=== PATIENT | male | born 1935 | race Caucasian/White ===

== ENCOUNTER → 2017-02-26 | Outpatient (REF) | payer MEDICARE | LOC: M SFHCLERA 11:35 | PROVIDERS: ATTEND Dermatology | DX: L57.0 Actinic keratosis (principal); L85.9 Epidermal thickening, unspecified; L57.8 Other skin changes due to chronic exposure to nonionizing radiation; C44.529 Squamous cell carcinoma of skin of other part of trunk ==

== ENCOUNTER → 2017-05-17 | Outpatient (CLI) | payer MEDICARE ==
[~2017-05-17] MED LIST: GASTROGRAFIN SOLUTION 30ML (Q9963) As Ordered ONE; ISOVUE-370 76% 100ML VIAL (Q9967) As Ordered ONE
--- NOTE | 2017-05-17 14:55 | REP ---
Clinical: Chronic lymphocytic leukemia for reevaluation. Technique: Axial contrast enhanced images from the thoracic inlet to the upper abdomen using 100 ml Isovue 370 intravenous contrast material with coronal and sagittal re-formations. Comparison: 10/30/2016, 02/26/2015. Findings: The bilateral lung jonas are well-aerated and demonstrate chronic interstitial changes, minimal scarring and moderate perihilar and basilar bronchiectasis. Mild cardiomegaly without pericardial effusion is appreciated atherosclerotic changes to the thoracic aorta noted without aneurysm or dissection. No significant adenopathy is appreciated. Right hilar lymph node measuring 16 mm is unchanged compared to 2015 and left hilar lymph nodes continue to measure approximately 8 mm short axis diameter. No axillary adenopathy. Surrounding musculoskeletal structures demonstrate age-related changes without focal osseous abnormality. Limited evaluation of the upper abdomen cannot exclude adenopathy in the martha hepatis and epigastric region as well as suspected splenomegaly. Hepatic hypodensities compatible with cysts are unchanged compared to 2015. Impression: 1. Lung jonas demonstrate chronic interstitial changes and scattered scarring along with bronchiectasis which remain stable. Few bilateral hilar lymph nodes are unchanged and there is no significant adenopathy. No acute mediastinal or pleuroparenchymal process noted. 2. Limited upper abdomen suggests adenopathy in the epigastric region and martha hepatis. Splenomegaly incompletely evaluated. Hepatic hypodensities compatible with cysts and unchanged. Signed by Joshua Looney MD 05/17/2017 02:47 P
--- NOTE | 2017-05-17 15:18 | REP ---
Clinical: Chronic lymphocytic leukemia for reevaluation. Comparison: 10/30/2016, 02/26/2015. Technique: Axial contrast enhanced images from the lung bases to the pubic symphysis using oral and 100 ml Isovue 370 intravenous contrast material with precontrast and delayed images of the abdomen as well as coronal and sagittal re-formations. Findings: Lung bases demonstrate chronic scarring to the lingula and bilateral bases along with mild bronchiectasis. Stable hepatic cysts are identified measuring up to 3.3 cm in the medial left lobe. No focal hepatic lesions are identified. Splenomegaly is identified without change without obvious focal splenic lesion or abnormality. Incidental note is made of a chronic splenic calcifications. The gallbladder, pancreas, bilateral adrenal glands and kidneys are essentially normal. Few scattered subcentimeter simple renal cysts are noted. The enteric system including stomach, small and large bowel is grossly unremarkable and without obstruction or acute inflammatory process. A small hiatal hernia is identified at the gastroesophageal junction. Few scattered sigmoid diverticula noted without acute diverticulitis. Pelvis includes normal bladder and mildly prominent prostate gland measuring 4.5 cm transverse diameter. No ascites. Atherosclerotic changes of the vasculature noted without aneurysm or dissection. Mesenteric and paraaortic retroperitoneal lymph nodes are appreciated. Largest nodes are identified in the left para-aortic retroperitoneal space measuring 18 mm and essentially unchanged when compared to 02/26/2015 node seen in the dot celiac access and epigastric region are also identified and appear relatively stable measuring up to approximately 14 mm short axis diameter as well as adjacent to the uncinate process measuring approximately 16 mm short axis diameter and again unchanged compared to 02/26/2015. Impression: 1. Splenomegaly (splenic index equals 1563; splenic volume equals 937 ml). With stable lymph nodes compared to 02/26/2015 and no evidence for adenopathy. No ascites or obvious mass lesion. 2. Chronic changes at the lung bases. 3. Scattered sigmoid diverticula without acute diverticulitis. 4. Moderately prominent prostate gland. 5. Stable hepatic cysts. 6. Atherosclerotic changes to the vasculature and degenerative changes to the lumbosacral spine Signed by Joshua Looney MD 05/17/2017 03:10 P
--- NOTE | 2017-05-17 15:40 | REP ---
CT SOFT-TISSUE NECK WITH CONTRAST: 05/17/2017. CLINICAL HISTORY: CLL/SLL, for follow-up. COMPARISON: CT 10/30/2016 from [facility], [place], [place]. TECHNIQUE: The patient received a bolus of 100 ml of Isovue 370, scanning through the neck with coronal and sagittal reconstructions. FINDINGS: At the skull base, the visualized portions of the anterior, middle and posterior cranial fossa were unremarkable and unchanged. Basal cisterns intact. Visualized sinuses and mastoids are clear. The skull base and occipital bone were unremarkable. Visualized facial bones and mandible also grossly intact with some absent dentition. The bilateral parotid and submandibular glands were symmetric and grossly normal. There are some enlarged nodes in the jugulodigastric chain bilaterally measuring about 10.5 mm in short axis for the largest node on each side. These are essentially unchanged from the previous CT. There are other smaller nodes in this region. There are numerous nodes in the anterior and posterior cervical chain. The largest in the carotid space on the right about 10.3 and on the left 9.5 mm in short axis, not much changed. Nodes in the supraclavicular region are present bilaterally, most of these less than a centimeter. They are also stable. Anterior and posterior strap muscles in the neck intact. The thyroid lobes are symmetric and grossly intact. The nasopharyngeal airway, oropharynx, hypopharynx, larynx and subglottic trachea were unremarkable. No prevertebral swelling. The bone windows show cervical spondylosis and normal cervical lordosis and this appearance is unchanged from the previous CT. Medial heads of the clavicles, portions of the first four paired ribs and lung apices were without acute finding, except for some minor dependent atelectatic change. Strap muscles of the neck and the visualized shoulder musculature included were unremarkable. Some atherosclerotic calcifications in the carotids bilaterally are mild. Thyroid cartilage intact. Impression: 1. Cervical chain adenopathy in the anterior and posterior cervical chain and jugulodigastric chain with nodes similar in size to those seen on the prior examination. Submandibular, jugulodigastric chain and submental nodes along with the anterior and posterior cervical chains and supraclavicular fossa with diffuse adenopathy, all grossly stable. 2. Cervical spondylosis and degenerative disc changes with normal lordosis. No compression deformity or destructive lesion. Stable bony cervical spine. Skull base, mandible and the upper chest structures included were unremarkable. Signed by Jose Antonio Jeronimo MD 05/17/2017 05:14 P
== END ==
LOC: M RAD 12:43
PROVIDERS: ATTEND Internal Medicine Medical Oncology
DX: C91.90 Lymphoid leukemia, unspecified not having achieved remission (principal); R59.0 Localized enlarged lymph nodes; M43.12 Spondylolisthesis, cervical region; J84.10 Pulmonary fibrosis, unspecified; R16.1 Splenomegaly, not elsewhere classified; K57.30 Diverticulosis of large intestine without perforation or abscess without bleeding; K76.89 Other specified diseases of liver; M51.36 Other intervertebral disc degeneration, lumbar region
CPT/HCPCS: 70491; 71260; 74178; Q9963; Q9967

== ENCOUNTER → 2017-05-22 | Outpatient (REF) | payer MEDICARE ==
[2017-05-22 20:08] LABS: PERCENT SATURATION 25.4 % (19.7-50.0)
== END ==
LOC: M LAB REF 15:15
PROVIDERS: ATTEND Internal Medicine Medical Oncology
DX: C91.10 Chronic lymphocytic leukemia of B-cell type not having achieved remission (principal)

== ENCOUNTER → 2018-01-07 | Outpatient (REF) | payer MEDICARE ==
[2018-01-07 18:30] LABS: FERRITIN 65 NG/ML (26-388); IRON (FE) 112 UG/DL (65-175); PERCENT SATURATION 38.1 % (19.7-50.0); TOTAL IRON BINDING CAPACITY 294 UG/DL (250-450)
== END ==
LOC: M LAB REF 17:35
DX: C91.10 Chronic lymphocytic leukemia of B-cell type not having achieved remission (principal)
CPT/HCPCS: 83550

== ENCOUNTER → 2018-01-24 | Outpatient (REF) | payer MEDICARE ==
[2018-01-24 11:23] LABS: INR 0.99; PROTHROMBIN TIME 13.2 SECONDS (12.4-14.5)
[2018-01-24 11:24] LABS: PARTIAL THROMBOPLASTIN TIME 35.5 SECONDS (26.8-37.9)
[2018-01-25 10:57] LABS: HEPATITIS B SURFACE ANTIGEN NEGATIVE (NEGATIVE)
[2018-01-25 11:20] LABS: HEPATITIS B CORE ANTIBODY IGM NEGATIVE (NEGATIVE)
[2018-01-25 14:14] LABS: HEPATITIS B CORE ANTIBODY IGG Negative (Negative)
== END ==
LOC: M LAB REF 10:57
DX: C91.10 Chronic lymphocytic leukemia of B-cell type not having achieved remission (principal)

== ENCOUNTER → 2018-05-21 | Outpatient (CLI) | payer MEDICARE | LOC: M RAD 06:50 | DX: R22.42 Localized swelling, mass and lump, left lower limb (principal) | CPT/HCPCS: 73630 ==

== ENCOUNTER → 2018-08-14 | Outpatient (CLI) | payer MEDICARE ==
[~2018-08-14] MED LIST changes: +GASTROGRAFIN SOLUTION 30ML (Q9963) As Ordered; -GASTROGRAFIN SOLUTION 30ML (Q9963) As Ordered ONE; +ISOVUE-370 76% 100ML VIAL (Q9967) As Ordered; -ISOVUE-370 76% 100ML VIAL (Q9967) As Ordered ONE
== END ==
LOC: M RAD 11:35
DX: C91.10 Chronic lymphocytic leukemia of B-cell type not having achieved remission (principal); K76.89 Other specified diseases of liver
CPT/HCPCS: Q9963

== ENCOUNTER → 2019-01-14 | Outpatient (REF) | payer MEDICARE ==
[~2019-01-14] MED LIST changes: +ALPH0.156 OP; +CEPH500C PO; +DORZ2OPD OP; -GASTROGRAFIN SOLUTION 30ML (Q9963) As Ordered; +INDO50CA11 PO; +IRBE150T12 PO; -ISOVUE-370 76% 100ML VIAL (Q9967) As Ordered; +LATA0.0013 OP; +PRED20TA PO
[2019-01-14 18:05] LABS: HEMATOCRIT 42.8 % (42.0-52.0); MEAN CORPUSCULAR HGB CONC 32.7 g/dl (32.0-36.5); MEAN CORPUSCULAR VOLUME 97.9 fl (80.0-96.0); PLATELET COUNT, AUTOMATED 221 10^3/uL (150-450); RED BLOOD COUNT 4.37 10^6/uL (4.30-6.10); WHITE BLOOD COUNT 10.2 10^3/uL (4.0-10.0)
[2019-01-14 18:20] LABS: ALBUMIN 3.7 GM/DL (3.2-5.2); BILIRUBIN,DIRECT 0.2 MG/DL (0.0-0.2); BILIRUBIN,TOTAL 0.5 MG/DL (0.2-1.0); CHOLESTEROL RISK RATIO 4.378 (<5); TOTAL PROTEIN 6.9 GM/DL (6.4-8.2)
== END ==
LOC: M SFHCPLAZ 15:45
PROVIDERS: ATTEND Dermatology
DX: Z79.899 Other long term (current) drug therapy (principal)

== ENCOUNTER → 2019-01-15 | Outpatient (REF) | payer MEDICARE ==
[~2019-01-15] MED LIST changes: +AMLO10TA PO; +LATA1POW XX; +NIAC500T4 PO; +TRUS1SOL OS
== END ==
LOC: M SFHCPLAZ 11:31
PROVIDERS: ATTEND Dermatology
DX: C44.329 Squamous cell carcinoma of skin of other parts of face (principal); C44.712 Basal cell carcinoma of skin of right lower limb, including hip; C44.729 Squamous cell carcinoma of skin of left lower limb, including hip; C44.529 Squamous cell carcinoma of skin of other part of trunk

== ENCOUNTER → 2019-01-24 | Outpatient (CLI) | payer MEDICARE ==
[~2019-01-24] MED LIST changes: +GASTROGRAFIN SOLUTION 30ML (Q9963) As Ordered ONE; +ISOVUE-370 76% 100ML VIAL (Q9967) As Ordered ONE
--- NOTE | 2019-01-26 10:54 | REP ---
Clinical: Restaging chronic lymphocytic leukemia. Technique: Axial contrast enhanced images from the lung bases to the pubic symphysis using oral and 100 ml Isovue 370 intravenous contrast material with coronal and sagittal re-formations as well as delayed images of the abdomen. Comparison: 08/14/2018. Findings: Lung bases demonstrate stable chronic changes and bronchiectasis. Visualized heart and pericardium normal. Liver demonstrates stable hypodensities compatible with cysts. The spleen is minimally enlarged but stable. The pancreas, gallbladder, bilateral adrenal glands and kidneys are within normal limits. Subcentimeter left renal hypodensity compatible with small cyst and stable. The enteric system is without obstruction or acute inflammatory process. Scattered colonic diverticula noted without acute diverticulitis. Pelvis demonstrates normal bladder and mildly prominent prostate gland with mass effect on the base of the bladder. No ascites. No free air. No significant intraperitoneal or retroperitoneal adenopathy. The previously identified periaortic and paracaval lymph nodes have regressed. Atherosclerotic changes to the aorta and vasculature without aneurysm or dissection. Stable 1.7 cm fat containing periumbilical hernia. Musculoskeletal structures demonstrate age-related degenerative change without focal osseous abnormality. Impression: 1. Stable chronic findings including hepatic and subcentimeter renal cysts. 2. Diverticulosis without acute diverticulitis. 3. Stable fat-containing periumbilical hernia. 4. No evidence for recurrent malignancy or metastatic disease. Specifically, no ascites, adenopathy, or focal inflammatory changes noted. Electronically Signed by Joshua Looney MD 01/26/2019 10:45 A
--- NOTE | 2019-01-26 11:06 | REP ---
Clinical: Restaging chronic lymphocytic leukemia. Technique: Axial contrast enhanced images from the thoracic inlet to the upper abdomen using 100 ml Isovue 370 intravenous contrast material with coronal and sagittal re-formations. Comparison: 08/14/2018. Findings: No axillary, hilar, or mediastinal adenopathy is appreciated. Mediastinum demonstrates atherosclerotic changes to the thoracic aorta and coronary arteries without aortic aneurysm or dissection. No cardiomegaly or pericardial effusion is identified. The pulmonary vasculature is actively normal. The lung jonas demonstrate chronic COPD/emphysematous changes along with minimal chronic lingular and bibasilar scarring. Moderate chronic bronchiectasis noted. No acute consolidation, significant nodule, or mass lesion. No pleural effusion. No pneumothorax. Surrounding musculoskeletal structures demonstrate age-related changes without focal osseous abnormality. Impression: 1. No acute mediastinal or pleuroparenchymal process appreciated. 2. No adenopathy or mass lesion. No effusion. 3. Chronic changes remain stable. Electronically Signed by Joshua Looney MD 01/26/2019 10:58 A
--- NOTE | 2019-01-28 09:25 | REP ---
CT NECK WITH CONTRAST: HISTORY: Restaging chronic lymphocytic leukemia. CONTRAST: Isovue-370 100 mL. COMPARISON: 05/17/2017 Calcifications are present in the tonsils. This is secondary to previous inflammatory disease. The naso-, thomas-, and hypopharynx, larynx, and subglottic trachea are otherwise normal in appearance. The salivary and thyroid glands are normal in size and density. Small lymph nodes less than 1 cm in size are present in the internal jugular chains, posterior triangles, submandibular and supraclavicular areas. Atherosclerotic calcification is present at the carotid bifurcations. Degenerative change is present in the cervical spine. The lung apices are clear. The visualized sinuses are clear. IMPRESSION:There is no neck mass or adenopathy. Electronically Signed by Mehdi Underwood MD 01/28/2019 09:35 A
== END ==
LOC: M RAD 16:46
PROVIDERS: ATTEND Nurse Practitioner Family
DX: C91.10 Chronic lymphocytic leukemia of B-cell type not having achieved remission (principal); K44.9 Diaphragmatic hernia without obstruction or gangrene; K76.89 Other specified diseases of liver; K57.30 Diverticulosis of large intestine without perforation or abscess without bleeding
CPT/HCPCS: 70491; 71260; 74177; Q9963; Q9967

== ENCOUNTER → 2019-03-04 | Outpatient (CLI) | payer MEDICARE ==
[~2019-03-04] MED LIST changes: -GASTROGRAFIN SOLUTION 30ML (Q9963) As Ordered ONE; -ISOVUE-370 76% 100ML VIAL (Q9967) As Ordered ONE
--- NOTE | 2019-03-05 12:21 | REP ---
REASON FOR EXAM: Head and neck carcinoma. Comparison PET/CT: None. Prior CT neck, chest, abdomen and pelvis 01/24/2019 reviewed. After the intravenous administration of 8.95 millicuries of FDG18. Triplane whole body PET/CT was performed from the skull base to the mid thigh. There is hypermetabolic activity seen in the skin and immediate subcutanea in the right lateral neck soft tissues just below the ear. This has SUV valves of approximately 4.35. Additionally, there is a focus of hypermetabolic activity seen in the right posterior neck soft tissues deep to the trapezius musculature and abutting it at the level of C2. This has an SUV value of 5.9. Directly opposite to this on the left, there is a similar hypermetabolic focus with an SUV value of 3.3. There are no other abnormal hypermetabolic foci in the neck, chest, abdomen, or pelvis. IMPRESSION: Hypermetabolic activity in the right lateral neck soft tissues and in the region of the posterior cervical lymph node chain bilaterally. The small foci of increased activity in the posterior neck soft tissues are likely arising from nonenlarged lymph nodes, however, intense muscular activity in this region could simulate the finding to a certain degree, although that is less likely. Electronically Signed by Lon Brunson DO 03/05/2019 03:43 P
== END ==
LOC: M PLARAD 13:44
PROVIDERS: ATTEND Dermatology
DX: C44.329 Squamous cell carcinoma of skin of other parts of face (principal)
CPT/HCPCS: 78815; A9552

== ENCOUNTER → 2019-03-20 | Outpatient (REF) | payer MEDICARE ==
[2019-03-20 17:41] LABS: ALBUMIN 3.6 GM/DL (3.2-5.2); ALT/SGPT 20 U/L (12-78); BASO % 0.4 % (0.0-1.0); BILIRUBIN,TOTAL 0.5 MG/DL (0.2-1.0); BLOOD UREA NITROGEN 17 MG/DL (7-18); CALCIUM LEVEL 9.1 MG/DL (8.8-10.2); CARBON DIOXIDE LEVEL 30 MEQ/L (21-32); CHLORIDE LEVEL 109 MEQ/L (98-107); CREATININE FOR GFR 1.12 MG/DL (0.70-1.30); EOS # 0.4 10^3/uL (0.0-0.50); EOS % 3.5 % (0.0-3.0); GLOMERULAR FILTRATION RATE > 60.0 (>35); GLUCOSE, FASTING 109 MG/DL (70-100); HEMATOCRIT 40.6 % (42.0-52.0); HEMOGLOBIN 12.9 g/dl (13.5-17.5); LYMPH % 9.4 % (24.0-44.0); MEAN CORPUSCULAR HEMOGLOBIN 31.9 pg (27.0-33.0); MEAN CORPUSCULAR HGB CONC 31.8 g/dl (32.0-36.5); MEAN CORPUSCULAR VOLUME 100.5 fl (80.0-96.0); MONO % 8.6 % (0.0-5.0); NEUTROPHILS # 8.5 10^3/uL (1.8-7.7); NEUTROPHILS % 77.6 % (36.0-66.0); PLATELET COUNT, AUTOMATED 205 10^3/uL (150-450); RED BLOOD COUNT 4.04 10^6/uL (4.30-6.10); SODIUM LEVEL 145 MEQ/L (136-145); TOTAL PROTEIN 6.6 GM/DL (6.4-8.2)
== END ==
LOC: M LABDRAW1 11:27
PROVIDERS: ATTEND Family Medicine
DX: I10 Essential (primary) hypertension (principal)

== ENCOUNTER → 2019-04-09 | Outpatient (REF) | payer MEDICARE ==
[~2019-04-09] MED LIST changes: +ACET-683 PO; +ALPH0.156 OD; -ALPH0.156 OP; +CYAN500T8 PO; +Glucosamine; -INDO50CA11 PO; +INDO50CA91 PO; +MULTCAP PO; -TRUS1SOL OS; +TRUS1SOL OU; +VITAD1000T PO; +XALA0.007 OU
== END ==
LOC: M SFHCPLAZ 11:39
PROVIDERS: ATTEND Dermatology
DX: C44.310 Basal cell carcinoma of skin of unspecified parts of face (principal); C44.320 Squamous cell carcinoma of skin of unspecified parts of face

== ENCOUNTER → 2019-04-09 | Outpatient (CLI) | payer MEDICARE ==
--- NOTE | 2019-04-10 07:30 | REP ---
REASON: Palpable mass. Multiple ultrasonographic images of the right infra-auricular mass show a 3.2 x 1 x 2.6 cm sized solid mass. Color Doppler imaging shows increased blood flow within this mass. IMPRESSION: Solid neck mass as described above. Electronically Signed by Lon Brunson DO 04/10/2019 11:13 A
== END ==
LOC: M RAD 11:25
PROVIDERS: ATTEND Otolaryngology
DX: C44.320 Squamous cell carcinoma of skin of unspecified parts of face (principal); R22.1 Localized swelling, mass and lump, neck; C44.310 Basal cell carcinoma of skin of unspecified parts of face

== ENCOUNTER 2019-04-14 06:08 | Inpatient (IN) | payer MEDICARE ==
[~2019-04-14] VITALS: Ht 180.3 cm; Wt 79.3 kg
[~2019-04-14 06:08] MED LIST changes: -ACET-683 PO; +CHOL100029 PO; -Glucosamine; +LR 1,000 ML IV ONE; -VITAD1000T PO; +dexameTHASONE 4 MG/ML 1ML VIAL (J1100) IV ONE
[2019-04-14] MEDS ORDERED: Glucosamine (06:42)
[2019-04-14] MEDS ORDERED: LIDOCAINE W/EPINEPHRINE 1% 20ML VIAL As Ordered ONE (07:09)
[2019-04-14] MEDS ORDERED: ONDANSETRON 4MG/2ML VIAL (J2405) As Ordered ONE (07:11)
[2019-04-14] MEDS ORDERED: dexameTHASONE 4 MG/ML 1ML VIAL (J1100) As Ordered ONE (07:11)
[2019-04-14] MEDS ORDERED: LIDOCAINE 2% INJ 100 MG/5 ML SDV (FOR ANES.) As Ordered ONE (07:11)
[2019-04-14] MEDS ORDERED: ROCURONIUM BROMIDE 50 MG/5 ML VIAL As Ordered ONE (07:11)
[2019-04-14] MEDS ORDERED: PROPOFOL 200 MG/20 ML VIAL As Ordered ONE ×2 (07:11→07:15)
[2019-04-14] MEDS ORDERED: MIDAZOLAM INJ 2 MG/2 ML VIAL (J2250) As Ordered ONE (07:12)
[2019-04-14] MEDS ORDERED: fentaNYL 100 MCG/2 ML INJECTION (J3010) As Ordered ONE (07:12)
[2019-04-14] MEDS ORDERED: PHENYLephrine HCL 500 MCG/5 ML (100MCG/ML) SYRINGE (J2370) As Ordered ONE (07:58)
[2019-04-14] MEDS ORDERED: HYDROmorphone HCL 2 MG/ML 1ML VIAL (J1170) As Ordered ONE (08:23)
[2019-04-14] MEDS ORDERED: ePHEDrine SULFATE 25 MG/5 ML(5MG/ML) SYRINGE As Ordered ONE ×2 (08:49→09:23)
[2019-04-14] MEDS ORDERED: PHENYLEPHRINE INJ 10MG/ML VIAL (J2370) As Ordered ONE (08:50)
[2019-04-14] MEDS ORDERED: ACETAMINOPHEN 1000MG 100ML IV BTL (OFIRMEV) (J0131 PER 10MG) As Ordered ONE (11:15)
[2019-04-14] MEDS ORDERED: BACITRACIN OINT 30GM As Ordered ONE (12:11)
[2019-04-14] MEDS ORDERED: LR 1,000 ML IV SCH ×3 (13:15→15:00)
[2019-04-14] MEDS ORDERED: ONDANSETRON 4MG/2ML VIAL (J2405) IV PRN ×2 (13:15→15:00)
[2019-04-14] MEDS ORDERED: fentaNYL 100 MCG/2 ML INJECTION (J3010) IV PRN ×2 (13:15→15:00)
[2019-04-14] MEDS ORDERED: METOCLOPRAMIDE INJ 10MG/2ML VIAL (J2765) IV PRN ×2 (13:15→15:00)
[2019-04-14] MEDS ORDERED: PERCOCET 5MG/325MG TAB PO PRN ×2 (13:15→15:00)
[2019-04-14 14:00] VITALS: BP 102/57
[2019-04-14 15:06] VITALS: BP 104/59
[2019-04-14] MEDS: dexameTHASONE 4 MG/ML 1ML VIAL (J1100) IV SCH ×2 (15:46→23:41)
[2019-04-14 16:00] VITALS: BP 115/63
[2019-04-14] MEDS ORDERED: SLF 3 ML SYR IV PRN (16:00)
--- NOTE | 2019-04-14 16:37 | CR.PDOC ---
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 Admitted for overnight observation. Hospitalist consulted for co-management. ALLERGIES: Please see below. HOME MEDICATIONS: Please see below. PAST MEDICAL HISTORY: #HTN #CLL #cutaneous squamous cell #basal cell carcinoma PAST SURGICAL HISTORY: # REVIEW OF SYSTEMS: Negative except as per HPI PHYSICAL EXAM Vital Signs: See below General: NAD, lying comfortably in bed HEENT: NC/AT, EOMI, PERRL, right upper neck bandages in place Lungs: CTA B/L Heart: +S1S2, RRR Abd: soft, NT, +BS Ext: no edema Neuro: no gross focal deficits Psych: AAOx3 LABORATORY DATA: Please see below. ASSESSMENT/PLAN: 83 yo male s/p right upper neck excision of cutaneous squamous cell lesion #squamous cell lesion - s/p excision - follow as per primary team - ENT #CLL - s/p chemo 2017, diagnosed 2008 #HTN - amlodipine on hold for now #basal cell carcinoma #DVT prophylaxis - mechanical Vital Signs/I&O Vital Signs Date Time Temp Pulse Resp B/P (MAP) Pulse Ox O2 Delivery O2 Flow Rate FiO2 04/14/19 14:00 97.5 75 18 102/57 (72) 96 2.0 Allergies Coded Allergies: rituximab (Verified Adverse Reaction, Severe, decreased bp, oxygen, 04/10/19 ) Home Medications Scheduled Amlodipine Besylate (Norvasc) 10 Mg Tablet, 10 MG PO DAILY for 30 Days, #30 (Reported) Brimonidine Tartrate (Alphagan P) 0.15 % Lynn, 1 DROP OD BID, #15 (Reported) Cyanocobalamin (Vitamin B-12) (Vitamin B-12) 500 Mcg Tablet, 500 MCG PO DAILY, (Reported) Dorzolamide HCl (Trusopt) 2% 10ML Drops, 1 DROP OU BID, #5 (Reported) Indomethacin (Indomethacin) 50 Mg Cap, 50 MG PO PRN, (Reported) Latanoprost (Xalatan) 0.005% 2.5ML Drops, 1 DROP OU QPM, (Reported) Multivitamin (Multivitamins) 1 Each Capsule, 1 CAP PO DAILY, (Reported) Niacinamide (Niacinamide) 500 Mg Tablet, 500 MG PO BID for 30 Days, #60 (Reported) Vitamin D (Vitamin D3) 1,000 Unit Tablet, 2,000 UNITS PO DAILY, (Reported) [Glucosamine] , DAILY, (Reported) CHERRY NEFF MD Apr 14, 2019 15:08
[2019-04-14 17:00] VITALS: BP 132/71
[2019-04-14 20:00] VITALS: BP 133/73
[2019-04-14] MEDS: BRIMONIDINE 0.15% OPHTH SOLN 5 ML OD SCH (20:35)
[2019-04-14] MEDS: SLF 3 ML SYR IV SCH (20:35)
[2019-04-14] MEDS ORDERED: LATANOPROST 0.005% OPHTH SOLN 2.5 ML OU SCH (21:00)
[2019-04-14 23:59] VITALS: BP 125/65
[2019-04-15 04:00] VITALS: BP 132/72
[2019-04-15] MEDS ORDERED: ACETAMINOPHEN 500 MG TAB PO PRN (04:15)
[2019-04-15] MEDS ORDERED: traMADol 50 MG TAB PO ONE (04:15)
[2019-04-15] MEDS: SLF 3 ML SYR IV SCH ×2 (05:18→14:00)
[2019-04-15 08:00] VITALS: BP 140/73
[2019-04-15] MEDS: BRIMONIDINE 0.15% OPHTH SOLN 5 ML OD SCH (08:05)
[2019-04-15] MEDS: dexameTHASONE 4 MG/ML 1ML VIAL (J1100) IV SCH (08:07)
[2019-04-15 12:00] VITALS: BP 126/64
[2019-04-15] MEDS ORDERED: ACET-683 PO (14:36)
[2019-04-15 16:00] VITALS: BP 133/71
--- NOTE | 2019-04-16 06:40 | DS.PDOC ---
Discharge Summary General Date of Admission Apr 14, 2019 at 14:00 Date of Discharge 04.15.19 Primary Care Physician: Renetta Alicia MD Attending Physician: YARITZA DIAZ DO Discharge Summary PROCEDURES PERFORMED DURING STAY: removal of cutaneous neck squamous cell carcinoma right . ADMITTING DIAGNOSES: 1. cutaneous neck squamous cell carcinoma right DISCHARGE DIAGNOSES: 1. cutaneous squamous cell 2. HTN 3 CLL 4 basal cell carcinoma COMPLICATIONS/CHIEF COMPLAINT: Cutaneous Squamous Cell Carcinoma Of Right. HISTORY OF PRESENT ILLNESS: . HOSPITAL COURSE: Pt is 83 yo M with PMH of squamous cell carcinoma of the neck, CLL, basal cell carcinoma who was admitted for ENT service. Removal of SCC on the right sight was done on 04.14.19. Postoperative period was without any complications. DISCHARGE MEDICATIONS: Please see below. ALLERGIES: Please see below. PHYSICAL EXAMINATION ON DISCHARGE: Vital Signs: See below General: NAD, lying comfortably in bed HEENT: NC/AT, EOMI, PERRL, right upper neck bandages in place, drainage intact, serosanguineous discharge around 25cc Lungs: CTA B/L Heart: +S1S2, RRR Abd: soft, NT, +BS Ext: no edema Neuro: no gross focal deficits Psych: AAOx3 LABORATORY DATA: Please see below. ACTIVITY: As tolerated DIET: Regular DISCHARGE PLAN: Follow up with ENT in 1 week DISPOSITION: 01 Home, Self-Care. DISCHARGE INSTRUCTIONS: 1. Call to ENT office if drainage discharge less than 25 cc. Follow up in ENT in 1 week DISCHARGE CONDITION: Stable TIME SPENT ON DISCHARGE: Greater than 15 minutes. Vital Signs/I&Os Vital Signs Date Time Temp Pulse Resp B/P (MAP) Pulse Ox O2 Delivery O2 Flow Rate FiO2 04/15/19 16:00 98.6 91 20 133/71 (91) 93 2.0 I&O- Last 24 Hours up to 6 AM 04/16/19 06:00 Intake Total 660 ml Output Total 550 ml Balance 110 ml Discharge Medications Scheduled Amlodipine Besylate (Norvasc) 10 Mg Tablet, 10 MG PO DAILY, (Reported) Brimonidine Tartrate (Alphagan P) 0.15 % Lynn, 1 DROP OD BID, (Reported) Cyanocobalamin (Vitamin B-12) (Vitamin B-12) 500 Mcg Tablet, 500 MCG PO DAILY, (Reported) Dorzolamide HCl (Trusopt) 2% 10ML Drops, 1 DROP OU BID, (Reported) Indomethacin (Indomethacin) 50 Mg Cap, 50 MG PO PRN, (Reported) Latanoprost (Xalatan) 0.005% 2.5ML Drops, 1 DROP OU QPM, (Reported) Multivitamin (Multivitamins) 1 Each Capsule, 1 CAP PO DAILY, (Reported) Niacinamide (Niacinamide) 500 Mg Tablet, 500 MG PO BID, (Reported) Vitamin D (Vitamin D3) 1,000 Unit Tablet, 2,000 UNITS PO DAILY, (Reported) [Glucosamine] , DAILY, (Reported) Scheduled PRN Acetaminophen (Acetaminophen) 500 Mg Tablet, 1,000 MG PO Q8HP PRN for PAIN / FEVER dont exceed 4 g daily Allergies Coded Allergies: rituximab (Verified Adverse Reaction, Severe, decreased bp, oxygen, 04/10/19) YARITZA DIAZ DO Apr 16, 2019 06:40
--- NOTE | 2019-05-07 12:07 | RO ---
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 PROCEDURE: 1. Excision of the cutaneous squamous cell carcinoma of the right upper neck. Total area removed 6.5 x 7.5 cm. 2. Tissue rearrangement of the right upper neck. Total surface area 12 cm x 7 cm. SURGEON: Dr. Polo Christianson. PRIMARY CARE NURSE: Dr. George Toussaint. ANESTHESIA: General. CLINICAL PREAMBLE: This 83-year-old man presented to the office with a cutaneous lesion in the right upper neck region in the area of the angle of the mandible. It has been present for a year. It has been slowly enlarging and becoming progressively enlarging at a faster rate for the last several months. Biopsy showed evidence of squamous cell carcinoma. Management options including excision of the mass with possible parotidectomy and possible right neck dissection have been discussed with the patient in great detail. He understood and consented to the procedure. DESCRIPTION OF PROCEDURE: Patient was identified in preop holding and had the right upper neck marked. He was brought to the operating room in stable condition. In the supine position on the operating table, patient received general anesthesia followed by orotracheal intubation without incident. No further paralytic agents were used throughout the remainder of the case. The patient's head was turned to the left side to expose the right neck. The area was prepped and draped in the usual fashion or the procedure. At this time, the primary cutaneous squamous cell carcinoma site was identified and marked. The margin was infiltrated with 1% lidocaine with 1:100,000 epinephrine. The excision of the primary tumor site including margin was performed. The deep margin at the level of the parotid fascia showed no evidence of infiltration by the tumor mass. At this time, the intraoperative frozen section was performed. A small focus of squamous cell carcinoma was noted at the anterior margin. It was felt to be separate from the primary tumor site. As such, the decision was made to perform an additional sleeve of tissue at the anterior margin. At this time a total area of excision including margins was measured to be 6.5 x 7.5 cm. At this time, the hemostasis was achieved using bipolar electrocautery. Palpation of the level 2 lymph nodes of the right neck showed no evidence of lymphadenopathy. As such, the decision was made not to proceed with the parotidectomy or the neck dissection. The skin was then inspected. An area was marked down to the level of the right clavicle in the right upper chest area. A posteriorly pedicled skin flap was then fashioned. A rotational skin flap was then outlined and measured 12 cm x 7 cm. The skin was then extensively undermined and rotated onto the surgical defect on the right upper neck region. Face sutures were placed to ensure tension-free coverage of the surgical defect. At this time, a #10 Nuno-Hernandez (TYRESE) flat drain was inserted into the surgical site. The skin edges were then closed using #3-0 Vicryl for the deep layer and #3-0 Prolene for the final skin closure. The TYRESE drain was then secured with the #3-0 silk. At the end of the procedure, sponge and instrument counts are correct. No complication was encountered. Estimated blood loss of approximately 50 mL. General anesthesia was reversed and the patient was extubated and brought to the recovery room in stable condition. Dr. Toussaint was present throughout the entire case. He provided the necessary retraction as well as division of the tissue to allow safe operation of the procedure. He also assisted in design of the tissue flap alive as well. OBED
== END 2019-04-15 17:30 | disposition home or self-care (01) | DRG 578 ==
LOC: M SDC 06:08 → M PCU 14:00 → M SDC 14:25 → M MSPAV 22:11 → M PCU 22:13
PROVIDERS: ADMIT Otolaryngology; ATTEND Internal Medicine
PROC: 0WB60ZX Excision of Neck, Open Approach, Diagnostic (ICD-10-PCS; 2019-04-14)
PROC: 0HX4XZZ Transfer Neck Skin, External Approach (ICD-10-PCS; principal; 2019-04-14 07:30)
DX: C44.40 Unspecified malignant neoplasm of skin of scalp and neck (principal); I10 Essential (primary) hypertension; Z79.899 Other long term (current) drug therapy

== ENCOUNTER → 2019-04-24 | Outpatient (REF) | payer MEDICARE ==
[~2019-04-24] MED LIST changes: +ACET-683 PO; +Glucosamine; -LR 1,000 ML IV ONE; -dexameTHASONE 4 MG/ML 1ML VIAL (J1100) IV ONE
== END ==
LOC: M SFHCPLAZ 18:13
PROVIDERS: ATTEND Dermatology
DX: C44.529 Squamous cell carcinoma of skin of other part of trunk (principal)

== ENCOUNTER → 2019-05-08 | Outpatient (REF) | payer MEDICARE | LOC: M SFHCPLAZ 16:50 | PROVIDERS: ATTEND Dermatology | DX: C43.39 Malignant melanoma of other parts of face (principal); L57.0 Actinic keratosis ==

== ENCOUNTER → 2019-05-30 | Outpatient (REF) | payer MEDICARE | LOC: M SFHCPLAZ 17:02 | PROVIDERS: ATTEND Dermatology | DX: C44.111 Basal cell carcinoma of skin of unspecified eyelid, including canthus (principal) ==

== ENCOUNTER → 2019-06-12 | Outpatient (REF) | payer MEDICARE | LOC: M SFHCPLAZ 17:55 | PROVIDERS: ATTEND Dermatology | DX: C44.320 Squamous cell carcinoma of skin of unspecified parts of face (principal); C44.519 Basal cell carcinoma of skin of other part of trunk; C44.529 Squamous cell carcinoma of skin of other part of trunk ==

== ENCOUNTER → 2019-06-19 | Outpatient (REF) | payer MEDICARE ==
[2019-06-19 15:58] LABS: BASO % 0.5 % (0.0-1.0); EOS # 0.5 10^3/uL (0.0-0.5); HEMATOCRIT 43.1 % (42.0-52.0); HEMOGLOBIN 14.1 g/dl (13.5-17.5); LYMPH # 1.4 10^3/uL (1.5-5.0); LYMPH % 15.6 % (24.0-44.0); MEAN CORPUSCULAR HEMOGLOBIN 31.8 pg (27.0-33.0); MEAN CORPUSCULAR HGB CONC 32.7 g/dl (32.0-36.5); MEAN CORPUSCULAR VOLUME 97.3 fl (80.0-96.0); MONO # 0.8 10^3/uL (0.0-0.8); MONO % 9.1 % (0.0-5.0); NEUTROPHILS % 68.3 % (36.0-66.0); PLATELET COUNT, AUTOMATED 231 10^3/uL (150-450); RED BLOOD COUNT 4.43 10^6/uL (4.30-6.10); WHITE BLOOD COUNT 8.7 10^3/uL (4.0-10.0)
[2019-06-19 16:05] LABS: ALBUMIN 3.7 GM/DL (3.2-5.2); ALT/SGPT 18 U/L (12-78); BILIRUBIN,TOTAL 0.7 MG/DL (0.2-1.0); BLOOD UREA NITROGEN 19 MG/DL (7-18); CALCIUM LEVEL 9.1 MG/DL (8.8-10.2); CARBON DIOXIDE LEVEL 31 MEQ/L (21-32); CHLORIDE LEVEL 107 MEQ/L (98-107); CREATININE FOR GFR 1.03 MG/DL (0.70-1.30); GLOMERULAR FILTRATION RATE > 60.0 (>35); GLUCOSE, FASTING 87 MG/DL (70-100); SODIUM LEVEL 142 MEQ/L (136-145); TOTAL PROTEIN 6.8 GM/DL (6.4-8.2)
== END ==
LOC: M LABDRAW1 15:32
PROVIDERS: ATTEND Family Medicine
DX: Z01.818 Encounter for other preprocedural examination (principal)

== ENCOUNTER 2019-06-25 07:37 | Day surgery (SDC) | payer MEDICARE ==
[~2019-06-25] VITALS: Ht 182.9 cm; Wt 81.2 kg
[~2019-06-25 07:37] MED LIST changes: +LR 1,000 ML IV SCH; +dexameTHASONE 4 MG/ML 1ML VIAL (J1100) IV ONE
[2019-06-25] MEDS ORDERED: LIDOCAINE W/EPINEPHRINE 1% 20ML VIAL As Ordered ONE (08:58)
[2019-06-25] MEDS ORDERED: BACITRACIN OINT 30GM As Ordered ONE (08:58)
[2019-06-25] MEDS ORDERED: CEFUROXIME INJ 1.5 GM VIAL (J0697 PER 750MG) As Ordered ONE (09:21)
[2019-06-25] MEDS ORDERED: fentaNYL 250 MCG/5 ML INJECTION (J3010) As Ordered ONE (09:47)
[2019-06-25] MEDS ORDERED: PROPOFOL 200 MG/20 ML VIAL As Ordered ONE (09:47)
[2019-06-25] MEDS ORDERED: LIDOCAINE 2% INJ 100 MG/5 ML SDV (FOR ANES.) As Ordered ONE (09:47)
[2019-06-25] MEDS ORDERED: ROCURONIUM BROMIDE 50 MG/5 ML VIAL As Ordered ONE (09:47)
[2019-06-25] MEDS ORDERED: MIDAZOLAM INJ 2 MG/2 ML VIAL (J2250) As Ordered ONE (09:47)
[2019-06-25] MEDS ORDERED: PHENYLephrine HCL 500 MCG/5 ML (100MCG/ML) SYRINGE (J2370) As Ordered ONE (09:50)
[2019-06-25] MEDS ORDERED: dexameTHASONE 4 MG/ML 1ML VIAL (J1100) IV ONE (10:00)
[2019-06-25] MEDS ORDERED: PHENYLEPHRINE INJ 10MG/ML VIAL (J2370) As Ordered ONE (10:00)
[2019-06-25] MEDS ORDERED: SUGAMMADEX SODIUM 500 MG/5 ML VIAL (BRIDION) As Ordered ONE (10:19)
[2019-06-25] MEDS ORDERED: LACRILUBE (AKWA TEARS) OPHTH OINT 3.5 GM As Ordered ONE (10:36)
[2019-06-25] MEDS ORDERED: PERCOCET 5MG/325MG TAB As Ordered ONE (10:50)
[2019-06-25] MEDS ORDERED: fentaNYL 100 MCG/2 ML INJECTION (J3010) As Ordered ONE (11:07)
[2019-06-25] MEDS: fentaNYL 100 MCG/2 ML INJECTION (J3010) IV PRN ×2 (11:09→11:14)
[2019-06-25] MEDS ORDERED: LR 1,000 ML IV SCH ×2 (11:15→12:16)
[2019-06-25] MEDS ORDERED: HYDROMORPHONE HCL 0.5 MG/ 0.5 ML SYRINGE (J1170 PER 1) IV PRN (11:15)
[2019-06-25] MEDS ORDERED: ONDANSETRON 4MG/2ML VIAL (J2405) IV PRN (11:15)
[2019-06-25] MEDS ORDERED: PERCOCET 5MG/325MG TAB PO PRN (11:15)
[2019-06-25 11:55] VITALS: BP 146/88
== END 2019-06-25 12:46 | disposition home or self-care (01) ==
LOC: M SDC 07:37
PROVIDERS: ATTEND Otolaryngology
DX: D04.30 Carcinoma in situ of skin of unspecified part of face (principal); I10 Essential (primary) hypertension; C91.10 Chronic lymphocytic leukemia of B-cell type not having achieved remission; Z92.21 Personal history of antineoplastic chemotherapy; Z79.899 Other long term (current) drug therapy; Z88.8 Allergy status to other drugs, medicaments and biological substances
CPT/HCPCS: 11644; 88305; J0697; J1100; J2250; J2370; J3010

== ENCOUNTER → 2019-07-08 | Outpatient (REF) | payer MEDICARE ==
[~2019-07-08] MED LIST changes: -Glucosamine; +Glucosamine PO; -LR 1,000 ML IV SCH; -dexameTHASONE 4 MG/ML 1ML VIAL (J1100) IV ONE
== END ==
LOC: M SFHCPLAZ 17:20
PROVIDERS: ATTEND Dermatology
DX: C44.519 Basal cell carcinoma of skin of other part of trunk (principal); D23.5 Other benign neoplasm of skin of trunk

== ENCOUNTER 2019-07-23 09:26 | Day surgery (SDC) | payer MEDICARE ==
[~2019-07-23] VITALS: Ht 180.3 cm; Wt 80.7 kg
[~2019-07-23 09:26] MED LIST changes: +dexameTHASONE 4 MG/ML 1ML VIAL (J1100) IV ONE
[2019-07-23] MEDS ORDERED: BACITRACIN OINT 30GM As Ordered ONE (11:46)
[2019-07-23] MEDS ORDERED: LIDOCAINE W/EPINEPHRINE 1% 20ML VIAL As Ordered ONE (11:46)
[2019-07-23] MEDS ORDERED: SUGAMMADEX SODIUM 500 MG/5 ML VIAL (BRIDION) As Ordered ONE (12:32)
[2019-07-23] MEDS ORDERED: ROCURONIUM BROMIDE 50 MG/5 ML VIAL As Ordered ONE (12:32)
[2019-07-23] MEDS ORDERED: ePHEDrine SULFATE 25 MG/5 ML(5MG/ML) SYRINGE As Ordered ONE (12:32)
[2019-07-23] MEDS ORDERED: PROPOFOL 200 MG/20 ML VIAL As Ordered ONE (12:32)
[2019-07-23] MEDS ORDERED: PHENYLephrine HCL 500 MCG/5 ML (100MCG/ML) SYRINGE (J2370) As Ordered ONE (12:32)
[2019-07-23] MEDS ORDERED: LIDOCAINE 2% INJ 100 MG/5 ML SDV (FOR ANES.) As Ordered ONE (12:32)
[2019-07-23] MEDS ORDERED: dexameTHASONE 4 MG/ML 1ML VIAL (J1100) As Ordered ONE (12:32)
[2019-07-23] MEDS ORDERED: MIDAZOLAM INJ 2 MG/2 ML VIAL (J2250) As Ordered ONE (12:32)
[2019-07-23] MEDS ORDERED: fentaNYL 250 MCG/5 ML INJECTION (J3010) As Ordered ONE (12:32)
[2019-07-23] MEDS ORDERED: METOCLOPRAMIDE INJ 10MG/2ML VIAL (J2765) As Ordered ONE (12:32)
[2019-07-23] MEDS ORDERED: ONDANSETRON 4MG/2ML VIAL (J2405) As Ordered ONE (12:32)
[2019-07-23] MEDS ORDERED: LACRILUBE (AKWA TEARS) OPHTH OINT 3.5 GM As Ordered ONE (12:34)
[2019-07-23] MEDS ORDERED: BUPIVACAINE HCL 0.5% 10 ML VIAL As Ordered ONE (14:17)
[2019-07-23] MEDS ORDERED: ONDANSETRON 4MG/2ML VIAL (J2405) IV PRN (15:15)
[2019-07-23] MEDS ORDERED: LR 1,000 ML IV SCH ×2 (15:15→15:30)
[2019-07-23] MEDS ORDERED: fentaNYL 100 MCG/2 ML INJECTION (J3010) IV PRN (15:15)
[2019-07-23] MEDS ORDERED: NORCO, ANEXSIA 5/325MG TABLET (HYDROcodone/ACETAMINOPHEN) PO PRN (15:15)
[2019-07-23] MEDS ORDERED: ACETAMINOPHEN 500 MG TAB As Ordered ONE (16:33)
[2019-07-23] MEDS ORDERED: ACETAMINOPHEN 500 MG TAB PO SCH (16:45)
[2019-07-23 17:25] VITALS: BP 151/78
--- NOTE | 2019-08-30 07:36 | RO ---
DATE OF PROCEDURE: 07/23/2019 PREPROCEDURE DIAGNOSIS: Melanoma of the right forehead. POSTPROCEDURE DIAGNOSIS: Melanoma of the right forehead. PROCEDURE: Excision of the melanoma of the right forehead 6 cm x 4.5 cm with 0.5 cm margin included in the specimen. SURGEON: Polo Christianson MD TELEVISION PRESENTER: George Toussaint MD ANESTHESIA: General. CLINICAL PREAMBLE: This 83-year-old man with a history of multiple cutaneous malignancies including melanoma, basal cell carcinoma and squamous cell carcinoma presented to my office for consideration of excision of the melanoma over the right forehead. The location of the melanoma was marked by the ice cream chef with my confirmation . The depth of the melanoma was less than 0.7 mm. As such, decision was excise the melanoma with a margin of 0.5 cm have been discussed with the patient. He understood and consented to the procedure. DESCRIPTION OF PROCEDURE: The patient was identified in preop holding and had the lesion over the right forehead marked. He was brought to the operating room in stable condition. In the supine position on the operating table, the patient received general anesthesia followed by orotracheal intubation without incident. The patient was prepped and draped in the usual fashion for the procedure. The melanoma over the right forehead was then marked. The margin was infiltrated with 1% lidocaine with 1:100,000 epinephrine. Incision was made then through the skin down to the level of the periosteum of the skull. The specimen was then successfully excised and sent for intraoperative frozen section. The medial portion of the specimen was reported to have a closed margin. As such, the decision was made to excise additional 0.5 cm of tissue from the medial aspect of the surgical site. This was then reported to be free of tumor cells on the second intraoperative frozen section. At this time, the total area of excision measured 6 cm x 4.5 cm. The area was then widely undermined. #0 sutures were then used to close the wound. Horizontal mattress suture was then used to ensure good closure of the wound while under tension. My assistant associate professor, Dr. Toussaint, was present throughout the case who provided retraction as well as retention of the skin edges to allow safe performance of the surgery as well as closure of the wound. The surgical site was then dressed using the Bacitracin ointment. The head dressing was then applied over the head to ensure good hemostasis. At the end of the procedure, sponge and instrument counts were correct. No complication was encountered. Estimated blood loss was approximately 50 mL. General anesthesia was reversed, and the patient was extubated and brought to the recovery room in stable condition.
== END 2019-07-23 17:25 | disposition home or self-care (01) ==
LOC: M SDC 09:26
PROVIDERS: ATTEND Otolaryngology
DX: C43.39 Malignant melanoma of other parts of face (principal); C91.10 Chronic lymphocytic leukemia of B-cell type not having achieved remission; I10 Essential (primary) hypertension; Z86.718 Personal history of other venous thrombosis and embolism; Z92.21 Personal history of antineoplastic chemotherapy; Z96.1 Presence of intraocular lens; Z98.41 Cataract extraction status, right eye; Z98.42 Cataract extraction status, left eye; Z87.891 Personal history of nicotine dependence; Z88.8 Allergy status to other drugs, medicaments and biological substances; Z79.899 Other long term (current) drug therapy; Z85.828 Personal history of other malignant neoplasm of skin
CPT/HCPCS: 11646; 88305; 88329; J0697; J1100; J2250; J2370; J2405; J2765; J3010

== ENCOUNTER → 2019-08-08 | Outpatient (REF) | payer MEDICARE ==
[~2019-08-08] MED LIST changes: -dexameTHASONE 4 MG/ML 1ML VIAL (J1100) IV ONE
== END ==
LOC: M LAB REF 18:39
PROVIDERS: ATTEND Dermatology
DX: C44.42 Squamous cell carcinoma of skin of scalp and neck (principal); C44.229 Squamous cell carcinoma of skin of left ear and external auricular canal
CPT/HCPCS: 11102; 11103; 88305; G0463

== ENCOUNTER 2022-06-05 13:20 | Emergency (ER) | payer MEDICARE ==
[~2022-06-05] VITALS: Ht 182.9 cm; Wt 79.5 kg
[2022-06-05 13:20] VITALS: BP 120/64
[~2022-06-05 13:20] MED LIST changes: +CYAN500T14 PO; -CYAN500T8 PO; -IRBE150T12 PO; +IRBE150T7 PO; +NIAC500T29 PO; -NIAC500T4 PO
== END 2022-06-05 17:22 | disposition home or self-care (01) ==
LOC: M ED 13:20
DX: C44.719 Basal cell carcinoma of skin of left lower limb, including hip (principal); I10 Essential (primary) hypertension; Z88.9 Allergy status to unspecified drugs, medicaments and biological substances; Z79.811 Long term (current) use of aromatase inhibitors; Z79.899 Other long term (current) drug therapy

== ENCOUNTER → 2022-06-08 | Outpatient (REF) | payer MEDICARE | LOC: M SFHCDERM 17:19 | PROVIDERS: ATTEND Nurse Practitioner Family | DX: C44.1292 Squamous cell carcinoma of skin of left lower eyelid, including canthus (principal); C44.722 Squamous cell carcinoma of skin of right lower limb, including hip ==

== ENCOUNTER → 2023-05-04 | Outpatient (CLI) | payer MEDICARE ==
[~2023-05-04] MED LIST changes: +DORZ2SOL4; +FAMO20TA PO
== END ==
LOC: M RAD 12:37
PROVIDERS: ATTEND Specialist
DX: R05.9 Cough, unspecified (principal); Z85.828 Personal history of other malignant neoplasm of skin; J98.11 Atelectasis; J90 Pleural effusion, not elsewhere classified

== ENCOUNTER → 2023-05-17 | Outpatient (CLI) | payer MEDICARE ==
[~2023-05-17] MED LIST changes: +ATEN25TA PO; -DORZ2SOL4; +DORZ2SOL4 OU; +ELIQ5TAB PO; +LEVO25TA5 PO; +MED REC COMMENT; +PROHANCE 279.3MG/ML 15ML VIAL As Ordered ONE; +PROHANCE 279.3MG/ML 5ML VIAL As Ordered ONE
== END ==
LOC: M RAD 17:03
DX: C69.62 Malignant neoplasm of left orbit (principal)
CPT/HCPCS: 70543; A9576

== ENCOUNTER 2023-05-21 11:38 | Inpatient (IN) | payer MEDICARE ==
[~2023-05-21] VITALS: Ht 177.8 cm; Wt 69.8 kg
[~2023-05-21 11:38] MED LIST changes: -ATEN25TA PO; -ELIQ5TAB PO; -MED REC COMMENT; -PROHANCE 279.3MG/ML 15ML VIAL As Ordered ONE; -PROHANCE 279.3MG/ML 5ML VIAL As Ordered ONE
[2023-05-21] MEDS ORDERED: MOM 30ML SUSPENSION UDC PO PRN (12:55)
[2023-05-21] MEDS ORDERED: MAALOX 30 ML SUSP *UDC PO PRN (12:55)
[2023-05-21] MEDS ORDERED: ACETAMINOPHEN TAB 650MG DOSE (2X325MG) PO PRN (12:55)
[2023-05-21 14:44] VITALS: BP 136/97; TEMP 96.8; O2SAT 96
[2023-05-21 16:27] LABS: BASO # 0.1 10^3/uL (0.0-0.2); BASO % 0.5 % (0.0-1.0); EOS # 0.9 10^3/uL (0.0-0.5); EOS % 5.7 % (0.0-3.0); HEMOGLOBIN 13.5 g/dl (13.5-17.5); LYMPH # 1.8 10^3/uL (1.5-5.0); LYMPH % 11.7 % (24.0-44.0); MEAN CORPUSCULAR HEMOGLOBIN 29.5 pg (27.0-33.0); MEAN CORPUSCULAR HGB CONC 30.7 g/dl (32.0-36.5); MEAN CORPUSCULAR VOLUME 96.3 fl (80.0-96.0); MONO % 6.5 % (2.0-8.0); NEUTROPHILS # 11.6 10^3/uL (1.5-8.5); NEUTROPHILS % 75.1 % (36.0-66.0); PLATELET COUNT, AUTOMATED 351 10^3/uL (150-450); RED BLOOD COUNT 4.57 10^6/uL (4.30-6.10); WHITE BLOOD COUNT 15.4 10^3/uL (4.0-10.0)
[2023-05-21 16:38] LABS: CREATININE FOR GFR 1.34 MG/DL (0.70-1.30); GLOMERULAR FILTRATION RATE 53.6 (>35); POTASSIUM SERUM 3.9 MMOL/L (3.5-5.1)
[2023-05-21] MEDS ORDERED: ELIQ5TAB PO (16:48)
[2023-05-21] MEDS ORDERED: MED REC COMMENT (16:53)
[2023-05-21] MEDS ORDERED: ATEN25TA PO (16:53)
[2023-05-21] MEDS ORDERED: HOME MED LIST COMPLETE! XX SCH (17:00)
[2023-05-21 17:05] VITALS: BP 140/80; TEMP 97.3; O2SAT 96
[2023-05-21 18:13] LABS: EOSINOPHILS 3 % (0-3); LYMPHOCYTES 11 % (16-44); MONOCYTES 1 % (0-5); NEUTROPHILS 85 % (28-66); PLATELET ESTIMATE NORMAL (NORMAL)
[2023-05-21 20:00] VITALS: BP 124/89; TEMP 97.8; O2SAT 92
[2023-05-21] MEDS: BRIMONIDINE 0.15% OPHTH SOLN 5 ML OD SCH (20:32)
[2023-05-21] MEDS: DORZOLAMIDE 2% OPHTH SOLN 10 ML BTL OU SCH (20:32)
[2023-05-21] MEDS: LATANOPROST 0.005% OPHTH SOLN 2.5 ML OU SCH (20:32)
[2023-05-21] MEDS: DOXYCYCLINE HYCLATE 100MG TABLET PO SCH (20:33)
[2023-05-21] MEDS: FAMOTIDINE 20 MG TAB PO SCH (20:33)
[2023-05-21] MEDS: APIXABAN 5 MG TAB (ELIQUIS) PO SCH (20:33)
[2023-05-21] MEDS ORDERED: METOPROLOL TART 25 MG TABLET PO SCH (21:00)
[2023-05-21] MEDS ORDERED: VANCOMYCIN HCL 500 MG in D5W MINI-BAG PLUS 100 ML IV ONE (21:00)
[2023-05-22] VITALS: BP 122/87; TEMP 96.9; O2SAT 93
[2023-05-22 04:00] VITALS: BP 130/79; TEMP 98.7; O2SAT 90
[2023-05-22] MEDS ORDERED: VANCOMYCIN HCL 1,000 MG, VIAL MATE ADAPTER 1 EACH in D5W 250 ML IV SCH (08:00)
[2023-05-22 08:13] LABS: VANCOMYCIN LEVEL TROUGH 9.4 UG/ML (10.0-20.0)
[2023-05-22 08:14] LABS: BLOOD UREA NITROGEN 39 MG/DL (9-23); CALCIUM LEVEL 8.4 MG/DL (8.3-10.6); CARBON DIOXIDE LEVEL 30 MMOL/L (20-31); CHLORIDE LEVEL 104 MMOL/L (98-107); GLOMERULAR FILTRATION RATE > 60.0 (>35); GLUCOSE, FASTING 90 MG/DL (74-106); POTASSIUM SERUM 3.8 MMOL/L (3.5-5.1); SODIUM LEVEL 142 MMOL/L (136-145)
[2023-05-22 08:25] VITALS: BP 134/77; TEMP 97.9; O2SAT 86
[2023-05-22] MEDS: APIXABAN 5 MG TAB (ELIQUIS) PO SCH ×2 (08:37→20:52)
[2023-05-22] MEDS: FUROSEMIDE 20 MG TAB PO SCH (08:37)
[2023-05-22] MEDS: FAMOTIDINE 20 MG TAB PO SCH ×2 (08:37→20:52)
[2023-05-22] MEDS: DOXYCYCLINE HYCLATE 100MG TABLET PO SCH ×2 (08:37→20:52)
[2023-05-22] MEDS: METOPROLOL TART 50 MG TAB PO SCH ×2 (08:37→20:52)
[2023-05-22] MEDS: DORZOLAMIDE 2% OPHTH SOLN 10 ML BTL OU SCH ×2 (08:38→20:51)
[2023-05-22] MEDS: BRIMONIDINE 0.15% OPHTH SOLN 5 ML OD SCH ×3 (08:38→20:51)
[2023-05-22 10:06] LABS: BASO # 0.1 10^3/uL (0.0-0.2); BASO % 0.5 % (0.0-1.0); EOS % 7.9 % (0.0-3.0); HEMATOCRIT 37.2 % (42.0-52.0); HEMOGLOBIN 11.8 g/dl (13.5-17.5); LYMPH # 1.5 10^3/uL (1.5-5.0); LYMPH % 12.1 % (24.0-44.0); MEAN CORPUSCULAR HEMOGLOBIN 29.9 pg (27.0-33.0); MEAN CORPUSCULAR HGB CONC 31.7 g/dl (32.0-36.5); MEAN CORPUSCULAR VOLUME 94.4 fl (80.0-96.0); MONO # 0.8 10^3/uL (0.0-0.8); NEUTROPHILS # 8.7 10^3/uL (1.5-8.5); NEUTROPHILS % 72.1 % (36.0-66.0); PLATELET COUNT, AUTOMATED 265 10^3/uL (150-450); RED BLOOD COUNT 3.94 10^6/uL (4.30-6.10); WHITE BLOOD COUNT 12.1 10^3/uL (4.0-10.0)
[2023-05-22] MEDS ORDERED: cefTRIAXone SOD 1 GM in D5W MINI-BAG PLUS 50 ML IV SCH (11:00)
[2023-05-22 12:15] VITALS: BP 126/89; TEMP 98; O2SAT 95
[2023-05-22 15:50] VITALS: BP 124/79; TEMP 97.8; O2SAT 96
[2023-05-22 17:30] LABS: PROCALCITONIN <0.04 ng/ml
[2023-05-22 20:00] VITALS: BP 129/81; TEMP 98; O2SAT 93
[2023-05-22] MEDS: LATANOPROST 0.005% OPHTH SOLN 2.5 ML OU SCH (20:51)
[2023-05-22] MEDS: ceFAZolin SOD 2 GM in IV 1 EA IV SCH (23:41)
[2023-05-23] VITALS (7 sets, daily range): BP systolic 115–142; BP diastolic 63–93; TEMP 96.9–99.7; O2SAT 92–96
[2023-05-23] MEDS ORDERED: LEVOTHYROXINE 25MCG TABLET (0.025MG) PO SCH (06:00)
[2023-05-23 07:45] LABS: VANCOMYCIN LEVEL TROUGH 9.9 UG/ML (10.0-20.0)
[2023-05-23 07:47] LABS: ALBUMIN 2.5 G/DL (3.2-5.2); ALKALINE PHOSPHATASE 60 U/L (46-116); ALT/SGPT 50 U/L (7.0-40); AST/SGOT 34 U/L (<34); BILIRUBIN,TOTAL 0.8 MG/DL (0.3-1.2); BLOOD UREA NITROGEN 26 MG/DL (9-23); CARBON DIOXIDE LEVEL 33 MMOL/L (20-31); CHLORIDE LEVEL 104 MMOL/L (98-107); CREATININE FOR GFR 1.01 MG/DL (0.70-1.30); GLOMERULAR FILTRATION RATE > 60.0 (>35); GLUCOSE, FASTING 90 MG/DL (74-106); POTASSIUM SERUM 3.5 MMOL/L (3.5-5.1); SODIUM LEVEL 143 MMOL/L (136-145); TOTAL PROTEIN 4.9 G/DL (5.7-8.2)
[2023-05-23 07:57] LABS: ERYTHROCYTE SEDIMENTATION RATE 33 mm/hr (0-20)
[2023-05-23 07:58] LABS: BASO # 0.1 10^3/uL (0.0-0.2); BASO % 0.5 % (0.0-1.0); EOS % 8.6 % (0.0-3.0); HEMATOCRIT 36.3 % (42.0-52.0); HEMOGLOBIN 11.6 g/dl (13.5-17.5); LYMPH # 1.3 10^3/uL (1.5-5.0); LYMPH % 11.4 % (24.0-44.0); MEAN CORPUSCULAR HEMOGLOBIN 30.1 pg (27.0-33.0); MONO # 0.9 10^3/uL (0.0-0.8); MONO % 7.5 % (2.0-8.0); NEUTROPHILS # 8.2 10^3/uL (1.5-8.5); NEUTROPHILS % 71.4 % (36.0-66.0); PLATELET COUNT, AUTOMATED 253 10^3/uL (150-450); RED BLOOD COUNT 3.86 10^6/uL (4.30-6.10); WHITE BLOOD COUNT 11.4 10^3/uL (4.0-10.0)
[2023-05-23] MEDS: ceFAZolin SOD 2 GM in IV 1 EA IV SCH ×2 (09:30→17:17)
[2023-05-23] MEDS: LATANOPROST 0.005% OPHTH SOLN 2.5 ML OU SCH (09:32)
[2023-05-23] MEDS: DOXYCYCLINE HYCLATE 100MG TABLET PO SCH ×2 (09:32→21:13)
[2023-05-23] MEDS: DORZOLAMIDE 2% OPHTH SOLN 10 ML BTL OU SCH ×2 (09:32→21:15)
[2023-05-23] MEDS: guaiFENesin ER 600 MG TAB PO SCH ×2 (09:33→21:13)
[2023-05-23] MEDS: FAMOTIDINE 20 MG TAB PO SCH ×2 (09:33→21:13)
[2023-05-23] MEDS: APIXABAN 5 MG TAB (ELIQUIS) PO SCH ×2 (09:33→21:13)
[2023-05-23] MEDS: FUROSEMIDE 20 MG TAB PO SCH (09:33)
[2023-05-23] MEDS: BRIMONIDINE 0.15% OPHTH SOLN 5 ML OD SCH ×3 (09:34→21:15)
[2023-05-23] MEDS: METOPROLOL TART 50 MG TAB PO SCH ×2 (09:38→21:13)
[2023-05-24] VITALS (7 sets, daily range): BP systolic 113–136; BP diastolic 65–94; TEMP 97.4–98.6; O2SAT 94–97
[2023-05-24] MEDS: ceFAZolin SOD 2 GM in IV 1 EA IV SCH ×3 (00:08→15:10)
[2023-05-24 08:04] LABS: BASO # 0.1 10^3/uL (0.0-0.2); BASO % 0.5 % (0.0-1.0); EOS % 8.1 % (0.0-3.0); HEMATOCRIT 39.9 % (42.0-52.0); HEMOGLOBIN 12.5 g/dl (13.5-17.5); LYMPH # 1.8 10^3/uL (1.5-5.0); LYMPH % 14.2 % (24.0-44.0); MEAN CORPUSCULAR HEMOGLOBIN 29.4 pg (27.0-33.0); MEAN CORPUSCULAR HGB CONC 31.3 g/dl (32.0-36.5); MEAN CORPUSCULAR VOLUME 93.9 fl (80.0-96.0); MONO # 0.7 10^3/uL (0.0-0.8); MONO % 5.9 % (2.0-8.0); NEUTROPHILS # 8.9 10^3/uL (1.5-8.5); NEUTROPHILS % 70.7 % (36.0-66.0); PLATELET COUNT, AUTOMATED 251 10^3/uL (150-450); RED BLOOD COUNT 4.25 10^6/uL (4.30-6.10); WHITE BLOOD COUNT 12.6 10^3/uL (4.0-10.0)
[2023-05-24 08:42] LABS: BLOOD UREA NITROGEN 24 MG/DL (9-23); CALCIUM LEVEL 8.4 MG/DL (8.3-10.6); CARBON DIOXIDE LEVEL 31 MMOL/L (20-31); CHLORIDE LEVEL 104 MMOL/L (98-107); CREATININE FOR GFR 0.96 MG/DL (0.70-1.30); GLOMERULAR FILTRATION RATE > 60.0 (>35); GLUCOSE, FASTING 108 MG/DL (74-106); POTASSIUM SERUM 3.4 MMOL/L (3.5-5.1); SODIUM LEVEL 143 MMOL/L (136-145)
[2023-05-24] MEDS: DOXYCYCLINE HYCLATE 100MG TABLET PO SCH ×2 (09:19→21:20)
[2023-05-24] MEDS: guaiFENesin ER 600 MG TAB PO SCH ×2 (09:19→21:19)
[2023-05-24] MEDS: FAMOTIDINE 20 MG TAB PO SCH ×2 (09:19→21:19)
[2023-05-24] MEDS: FUROSEMIDE 20 MG TAB PO SCH (09:19)
[2023-05-24] MEDS: APIXABAN 5 MG TAB (ELIQUIS) PO SCH ×2 (09:19→21:20)
[2023-05-24] MEDS: METOPROLOL TART 50 MG TAB PO SCH ×2 (09:25→21:20)
[2023-05-24] MEDS: BRIMONIDINE 0.15% OPHTH SOLN 5 ML OD SCH ×3 (09:33→21:21)
[2023-05-24] MEDS ORDERED: LIDOCAINE 1% MDV 20ML VIAL As Ordered ONE (09:33)
[2023-05-24] MEDS: DORZOLAMIDE 2% OPHTH SOLN 10 ML BTL OU SCH ×2 (09:33→21:21)
[2023-05-24] MEDS: predniSONE 20 MG TAB PO SCH (10:29)
[2023-05-24] MEDS ORDERED: POTASSIUM CHLORIDE 10MEQ SR TABLET PO ONE (13:00)
[2023-05-24] MEDS: ACETAMINOPHEN TAB 650MG DOSE (2X325MG) PO PRN (15:11)
[2023-05-24] MEDS: LATANOPROST 0.005% OPHTH SOLN 2.5 ML OU SCH (21:20)
[2023-05-25] VITALS (7 sets, daily range): BP systolic 111–134; BP diastolic 70–95; TEMP 97–97.7; O2SAT 94–100
[2023-05-25] MEDS: ceFAZolin SOD 2 GM in IV 1 EA IV SCH ×4 (00:08→23:31)
[2023-05-25 07:22] LABS: BASO % 0.1 % (0.0-1.0); EOS # 0.1 10^3/uL (0.0-0.5); EOS % 0.6 % (0.0-3.0); HEMATOCRIT 37.7 % (42.0-52.0); HEMOGLOBIN 11.8 g/dl (13.5-17.5); LYMPH # 1.7 10^3/uL (1.5-5.0); LYMPH % 11.7 % (24.0-44.0); MEAN CORPUSCULAR HEMOGLOBIN 29.6 pg (27.0-33.0); MEAN CORPUSCULAR HGB CONC 31.3 g/dl (32.0-36.5); MEAN CORPUSCULAR VOLUME 94.5 fl (80.0-96.0); MONO % 6.8 % (2.0-8.0); NEUTROPHILS # 11.6 10^3/uL (1.5-8.5); NEUTROPHILS % 80.2 % (36.0-66.0); PLATELET COUNT, AUTOMATED 266 10^3/uL (150-450); RED BLOOD COUNT 3.99 10^6/uL (4.30-6.10); WHITE BLOOD COUNT 14.5 10^3/uL (4.0-10.0)
[2023-05-25 07:53] LABS: ALBUMIN 2.5 G/DL (3.2-5.2); ALKALINE PHOSPHATASE 59 U/L (46-116); ALT/SGPT 20 U/L (7.0-40); AST/SGOT 23 U/L (<34); BILIRUBIN,TOTAL 0.5 MG/DL (0.3-1.2); BLOOD UREA NITROGEN 28 MG/DL (9-23); CALCIUM LEVEL 8.4 MG/DL (8.3-10.6); CARBON DIOXIDE LEVEL 33 MMOL/L (20-31); CHLORIDE LEVEL 104 MMOL/L (98-107); CREATININE FOR GFR 1.03 MG/DL (0.70-1.30); GLOMERULAR FILTRATION RATE > 60.0 (>35); GLUCOSE, FASTING 85 MG/DL (74-106); POTASSIUM SERUM 3.8 MMOL/L (3.5-5.1); SODIUM LEVEL 143 MMOL/L (136-145); TOTAL PROTEIN 5.2 G/DL (5.7-8.2)
[2023-05-25] MEDS: DOXYCYCLINE HYCLATE 100MG TABLET PO SCH ×2 (08:55→20:33)
[2023-05-25] MEDS: guaiFENesin ER 600 MG TAB PO SCH ×2 (08:55→20:33)
[2023-05-25] MEDS: predniSONE 20 MG TAB PO SCH (08:55)
[2023-05-25] MEDS: FAMOTIDINE 20 MG TAB PO SCH ×2 (08:56→20:33)
[2023-05-25] MEDS: METOPROLOL TART 50 MG TAB PO SCH (08:56)
[2023-05-25] MEDS: APIXABAN 5 MG TAB (ELIQUIS) PO SCH ×2 (08:56→20:33)
[2023-05-25] MEDS: FUROSEMIDE 20 MG TAB PO SCH (08:56)
[2023-05-25] MEDS: LATANOPROST 0.005% OPHTH SOLN 2.5 ML OU SCH ×2 (08:56→20:32)
[2023-05-25] MEDS: DORZOLAMIDE 2% OPHTH SOLN 10 ML BTL OU SCH ×2 (08:57→20:31)
[2023-05-25] MEDS: BRIMONIDINE 0.15% OPHTH SOLN 5 ML OD SCH ×3 (08:57→20:32)
[2023-05-25] MEDS ORDERED: FURO20TA2 PO (12:06)
[2023-05-25] MEDS ORDERED: DOXY100T PO (12:07)
[2023-05-25] MEDS ORDERED: LOPR1TAB6 PO (12:07)
[2023-05-25] MEDS ORDERED: PRED20TA PO ×2 (12:07→12:09)
[2023-05-25] MEDS: dilTIAZem 30 MG TAB PO SCH ×2 (16:52→20:32)
[2023-05-26] MEDS: dilTIAZem 30 MG TAB PO SCH (02:50)
[2023-05-26 03:32] VITALS: BP 122/74; TEMP 97; O2SAT 96
[2023-05-26 05:16] LABS: BASO % 0.2 % (0.0-1.0); EOS # 0.1 10^3/uL (0.0-0.5); EOS % 0.7 % (0.0-3.0); HEMATOCRIT 37.4 % (42.0-52.0); HEMOGLOBIN 11.6 g/dl (13.5-17.5); LYMPH # 1.7 10^3/uL (1.5-5.0); LYMPH % 12.4 % (24.0-44.0); MEAN CORPUSCULAR HEMOGLOBIN 29.1 pg (27.0-33.0); MONO % 7.3 % (2.0-8.0); NEUTROPHILS # 10.5 10^3/uL (1.5-8.5); NEUTROPHILS % 78.7 % (36.0-66.0); PLATELET COUNT, AUTOMATED 242 10^3/uL (150-450); RED BLOOD COUNT 3.98 10^6/uL (4.30-6.10); WHITE BLOOD COUNT 13.3 10^3/uL (4.0-10.0)
[2023-05-26 05:43] LABS: ALBUMIN 2.6 G/DL (3.2-5.2); ALKALINE PHOSPHATASE 55 U/L (46-116); ALT/SGPT 15 U/L (7.0-40); AST/SGOT 25 U/L (<34); BILIRUBIN,TOTAL 0.3 MG/DL (0.3-1.2); BLOOD UREA NITROGEN 32 MG/DL (9-23); CALCIUM LEVEL 8.3 MG/DL (8.3-10.6); CARBON DIOXIDE LEVEL 32 MMOL/L (20-31); CHLORIDE LEVEL 107 MMOL/L (98-107); CREATININE FOR GFR 1.06 MG/DL (0.70-1.30); GLOMERULAR FILTRATION RATE > 60.0 (>35); GLUCOSE, FASTING 96 MG/DL (74-106); POTASSIUM SERUM 3.6 MMOL/L (3.5-5.1); SODIUM LEVEL 144 MMOL/L (136-145); TOTAL PROTEIN 5.1 G/DL (5.7-8.2)
[2023-05-26] MEDS ORDERED: LEVOTHYROXINE 25MCG TABLET (0.025MG) PO SCH (06:00)
[2023-05-26 07:32] VITALS: BP 129/85; TEMP 96.8; O2SAT 96
[2023-05-26] MEDS: ceFAZolin SOD 2 GM in IV 1 EA IV SCH (08:48)
[2023-05-26] MEDS: DOXYCYCLINE HYCLATE 100MG TABLET PO SCH (08:49)
[2023-05-26] MEDS: FAMOTIDINE 20 MG TAB PO SCH (08:49)
[2023-05-26] MEDS: predniSONE 20 MG TAB PO SCH (08:49)
[2023-05-26] MEDS: APIXABAN 5 MG TAB (ELIQUIS) PO SCH (08:49)
[2023-05-26] MEDS: guaiFENesin ER 600 MG TAB PO SCH (08:49)
[2023-05-26 08:50] VITALS: BP 129/85
[2023-05-26] MEDS: DORZOLAMIDE 2% OPHTH SOLN 10 ML BTL OU SCH (08:51)
[2023-05-26] MEDS: BRIMONIDINE 0.15% OPHTH SOLN 5 ML OD SCH (08:51)
[2023-05-26] MEDS: ACETAMINOPHEN TAB 650MG DOSE (2X325MG) PO PRN (08:57)
[2023-05-26] MEDS ORDERED: POTASSIUM CHLORIDE 10MEQ SR TABLET PO ONE (09:00)
[2023-05-26] MEDS ORDERED: TORSEMIDE 20 MG TAB PO SCH (09:00)
[2023-05-26] MEDS ORDERED: dilTIAZem 120MG **CD** CAPSULE PO SCH (09:00)
[2023-05-26] MEDS ORDERED: TORS20TA2 PO ×2 (10:07→11:17)
[2023-05-26] MEDS ORDERED: CARD120C3 PO (10:07)
[2023-05-26] MEDS ORDERED: PRED20TA PO (10:12)
[2023-05-26] MEDS ORDERED: POTA10CA60 PO (10:12)
[2023-05-26] MEDS ORDERED: DOXY100T PO (10:12)
[2023-05-26] MEDS ORDERED: MAGN400T2 PO (10:12)
[2023-05-26 11:53] VITALS: BP 132/80; TEMP 97.4; O2SAT 93
== END 2023-05-26 11:54 | disposition home or self-care (01) | DRG 177 ==
LOC: M PCU 14:32
PROVIDERS: ADMIT Internal Medicine; ATTEND Internal Medicine
DX: J15.211 Pneumonia due to Methicillin susceptible Staphylococcus aureus (principal); J96.01 Acute respiratory failure with hypoxia; C91.10 Chronic lymphocytic leukemia of B-cell type not having achieved remission; I50.30 Unspecified diastolic (congestive) heart failure; R78.81 Bacteremia; I48.91 Unspecified atrial fibrillation; I27.21 Secondary pulmonary arterial hypertension; I11.0 Hypertensive heart disease with heart failure; C44.90 Unspecified malignant neoplasm of skin, unspecified; Z88.8 Allergy status to other drugs, medicaments and biological substances; Z79.899 Other long term (current) drug therapy; Z87.891 Personal history of nicotine dependence; Z98.41 Cataract extraction status, right eye; Z98.42 Cataract extraction status, left eye

== ENCOUNTER 2023-05-26 12:08 | Outpatient (CLI) | payer MEDICARE ==
[~2023-05-26 12:08] MED LIST changes: +ATEN25TA PO; +CARD120C3 PO; +DOXY100T PO; +ELIQ5TAB PO; +FURO20TA2 PO; +LOPR1TAB6 PO; +MAGN400T2 PO; +MED REC COMMENT; +POTA10CA60 PO; +TORS20TA2 PO
[2023-05-26] MEDS ORDERED: DALBAVANCIN 1,500 MG in D5W 250 ML IV ONE (13:00)
== END 2023-05-26 16:01 | disposition home or self-care (01) ==
LOC: M OPCLIPCU 12:08 → M PCU 12:10 → M OPCLIPCU 16:01
PROVIDERS: ATTEND Internal Medicine
DX: B95.61 Methicillin susceptible Staphylococcus aureus infection as the cause of diseases classified elsewhere (principal); Z88.1 Allergy status to other antibiotic agents
CPT/HCPCS: 96365; J0875

== ENCOUNTER 2023-06-05 11:44 | Observation (INO) | payer MEDICARE ==
[~2023-06-05] VITALS: Ht 177.8 cm; Wt 73.6 kg
[2023-06-05] MEDS ORDERED: dilTIAZem 25MG/5ML VIAL IV STA ×2 (12:40→13:43)
[2023-06-05 12:43] LABS: BASO % 0.2 % (0.0-1.0); EOS # 0.4 10^3/uL (0.0-0.5); EOS % 3.6 % (0.0-3.0); HEMATOCRIT 40.9 % (42.0-52.0); HEMOGLOBIN 12.5 g/dl (13.5-17.5); LYMPH # 1.4 10^3/uL (1.5-5.0); LYMPH % 12.1 % (24.0-44.0); MEAN CORPUSCULAR HEMOGLOBIN 29.1 pg (27.0-33.0); MEAN CORPUSCULAR HGB CONC 30.6 g/dl (32.0-36.5); MEAN CORPUSCULAR VOLUME 95.1 fl (80.0-96.0); MONO # 1.1 10^3/uL (0.0-0.8); MONO % 9.2 % (2.0-8.0); NEUTROPHILS # 8.6 10^3/uL (1.5-8.5); NEUTROPHILS % 74.4 % (36.0-66.0); PLATELET COUNT, AUTOMATED 359 10^3/uL (150-450); WHITE BLOOD COUNT 11.5 10^3/uL (4.0-10.0)
[2023-06-05 13:02] LABS: INR 1.52; PROTHROMBIN TIME 17.9 SECONDS (12.5-14.5)
[2023-06-05 13:35] LABS: FREE T4 1.12 NG/DL (0.89-1.76); THYROID STIMULATING HORMONE 2.293 uIU/ML (0.55-4.78)
[2023-06-05 13:41] LABS: ALKALINE PHOSPHATASE 58 U/L (46-116); ALT/SGPT 17 U/L (7.0-40); AST/SGOT 18 U/L (<34); BILIRUBIN,DIRECT 0.3 MG/DL (<0.4); BILIRUBIN,TOTAL 0.8 MG/DL (0.3-1.2); BLOOD UREA NITROGEN 18 MG/DL (9-23); CALCIUM LEVEL 8.2 MG/DL (8.3-10.6); CARBON DIOXIDE LEVEL 32 MMOL/L (20-31); CHLORIDE LEVEL 104 MMOL/L (98-107); CK-MB VALUE MASS < 1.0 NG/ML (<3.6); CPK CREATINE PHOSPHOKINASE 25 U/L (46-171); CREATININE FOR GFR 1.12 MG/DL (0.70-1.30); GLOMERULAR FILTRATION RATE > 60.0 (>35); GLUCOSE, FASTING 86 MG/DL (74-106); POTASSIUM SERUM 4.1 MMOL/L (3.5-5.1); SODIUM LEVEL 140 MMOL/L (136-145); TOTAL PROTEIN 5.7 G/DL (5.7-8.2)
[2023-06-05] MEDS ORDERED: ISOVUE-370 76% 100ML VIAL As Ordered ONE (13:48)
[2023-06-05 14:07] LABS: CK-MB VALUE MASS < 1.0 NG/ML (<3.6); CPK CREATINE PHOSPHOKINASE 24 U/L (46-171); MB/CK RELATIVE INDEX 4.16 (< OR =4)
[2023-06-05] MEDS ORDERED: PIPERACILLIN/TAZOBACTAM SOD 4.5 GM in D5W MINI-BAG PLUS 50 ML IV ONE (14:30)
[2023-06-05] MEDS ORDERED: VANCOMYCIN HCL 1,000 MG, VIAL MATE ADAPTER 1 EACH in D5W 250 ML IV ONE (14:30)
[2023-06-05 15:23] LABS: RSV AMPLIFICATION NEGATIVE (NEGATIVE)
[2023-06-05] MEDS ORDERED: MED REC IN PROGRESS XX SCH (15:30)
[2023-06-05] MEDS ORDERED: MOM 30ML SUSPENSION UDC PO PRN (15:40)
[2023-06-05] MEDS ORDERED: ACETAMINOPHEN TAB 650MG DOSE (2X325MG) PO PRN (15:40)
[2023-06-05] MEDS ORDERED: METOPROLOL TART 50 MG TAB PO ONE (16:00)
[2023-06-05 16:12] LABS: PROCALCITONIN 0.05 ng/ml
[2023-06-05 17:58] VITALS: BP 125/72; TEMP 98; O2SAT 99
[2023-06-05] MEDS ORDERED: THERTAB21 PO (19:39)
[2023-06-05] MEDS ORDERED: MAGN400T2 PO (19:39)
[2023-06-05] MEDS ORDERED: POTA-150 PO (19:39)
[2023-06-05] MEDS ORDERED: HOME MED LIST COMPLETE! XX SCH (19:40)
[2023-06-05 20:00] VITALS: BP 112/70; TEMP 98.7; O2SAT 97
[2023-06-05] MEDS: DOCUSATE SODIUM 100MG CAPSULE PO SCH (20:08)
[2023-06-05] MEDS: guaiFENesin SYRUP 200MG 10ML UDC PO PRN (20:10)
[2023-06-05 23:50] VITALS: BP 120/68; TEMP 97.3; O2SAT 95
[2023-06-06] MEDS: guaiFENesin SYRUP 200MG 10ML UDC PO PRN (00:37)
[2023-06-06 04:00] VITALS: BP 123/87; TEMP 97.1; O2SAT 95
[2023-06-06 05:19] LABS: HEMATOCRIT 37.4 % (42.0-52.0); HEMOGLOBIN 11.6 g/dl (13.5-17.5); MEAN CORPUSCULAR HEMOGLOBIN 29.4 pg (27.0-33.0); MEAN CORPUSCULAR VOLUME 94.9 fl (80.0-96.0); PLATELET COUNT, AUTOMATED 332 10^3/uL (150-450); RED BLOOD COUNT 3.94 10^6/uL (4.30-6.10); WHITE BLOOD COUNT 10.6 10^3/uL (4.0-10.0)
[2023-06-06 05:35] LABS: BLOOD UREA NITROGEN 19 MG/DL (9-23); CALCIUM LEVEL 7.7 MG/DL (8.3-10.6); CARBON DIOXIDE LEVEL 30 MMOL/L (20-31); CHLORIDE LEVEL 106 MMOL/L (98-107); CREATININE FOR GFR 1.13 MG/DL (0.70-1.30); GLOMERULAR FILTRATION RATE > 60.0 (>35); GLUCOSE, FASTING 90 MG/DL (74-106); POTASSIUM SERUM 4.4 MMOL/L (3.5-5.1); SODIUM LEVEL 141 MMOL/L (136-145)
[2023-06-06 07:42] VITALS: BP 125/81; TEMP 97.8; O2SAT 95
[2023-06-06] MEDS: DOCUSATE SODIUM 100MG CAPSULE PO SCH (08:21)
[2023-06-06] MEDS ORDERED: METOPROLOL TART 25 MG TABLET PO ONE (08:35)
[2023-06-06] MEDS ORDERED: guaiFENesin/CODEINE SYRUP 5 ML UDC PO PRN (08:35)
[2023-06-06] MEDS ORDERED: METOPROLOL TART 50 MG TAB PO SCH (09:00)
[2023-06-06 09:26] VITALS: BP 115/71
[2023-06-06] MEDS ORDERED: GUAI1SOL7 PO (10:49)
[2023-06-06] MEDS ORDERED: METO75TA PO (10:49)
[2023-06-06] MEDS ORDERED: METO100T5 PO (11:35)
[2023-06-06] MEDS ORDERED: METOPROLOL TART 25 MG TABLET PO SCH (21:00)
== END 2023-06-06 13:04 | disposition home or self-care (01) ==
LOC: M ED 11:44 → M ED INP 11:45 → M PCU 17:50
PROVIDERS: ADMIT Student in an Organized Health Care Education/Training Program; ATTEND Student in an Organized Health Care Education/Training Program
DX: I48.91 Unspecified atrial fibrillation (principal); R07.9 Chest pain, unspecified; R91.1 Solitary pulmonary nodule; I50.82 Biventricular heart failure; J90 Pleural effusion, not elsewhere classified; R05.1 Acute cough; I11.0 Hypertensive heart disease with heart failure; C91.11 Chronic lymphocytic leukemia of B-cell type in remission; C44.92 Squamous cell carcinoma of skin, unspecified; H40.9 Unspecified glaucoma; Z88.8 Allergy status to other drugs, medicaments and biological substances; Z79.899 Other long term (current) drug therapy; Z79.01 Long term (current) use of anticoagulants; Z87.891 Personal history of nicotine dependence
CPT/HCPCS: 36415; 71045; 71275; 80048; 80053; 80076; 82550; 82553; 84145; 84439; 84443; 84481; 84484; 85025; 85027; 85610; 85730; 87040; 87631; 93005; 93041; 94760; 96374; 96376; 97161; 97530; 99285; G0378; G0463; Q9967

== ENCOUNTER 2023-06-14 03:25 | Inpatient (IN) | payer MEDICARE ==
[~2023-06-14] VITALS: Ht 177.8 cm; Wt 69.9 kg
[~2023-06-14 03:25] MED LIST changes: +GUAI1SOL7 PO; +METO100T5 PO; +METO75TA PO; +POTA-150 PO; +THERTAB21 PO
[2023-06-14 04:10] LABS: HEMATOCRIT 40.7 % (42.0-52.0); HEMOGLOBIN 12.8 g/dl (13.5-17.5); MEAN CORPUSCULAR HEMOGLOBIN 29.6 pg (27.0-33.0); MEAN CORPUSCULAR HGB CONC 31.4 g/dl (32.0-36.5); MEAN CORPUSCULAR VOLUME 94.2 fl (80.0-96.0); PLATELET COUNT, AUTOMATED 279 10^3/uL (150-450); RED BLOOD COUNT 4.32 10^6/uL (4.30-6.10); WHITE BLOOD COUNT 12.6 10^3/uL (4.0-10.0)
[2023-06-14 04:13] LABS: APPEARANCE, URINE HAZY (CLEAR); BACTERIA, URINE AUTO NEGATIVE (NEGATIVE); BILIRUBIN, URINE AUTO NEGATIVE (NEGATIVE); BLOOD, URINE BLOOD 2+ (NEGATIVE); COLOR, URINE YELLOW (YELLOW); GLUCOSE, URINE (UA) AUTO NEGATIVE (NEGATIVE); GRANULAR CAST, URINE AUTO 4 /LPF; KETONE, URINE AUTO NEGATIVE (NEGATIVE); LEUKOCYTE ESTERASE, URINE AUTO TRACE (NEGATIVE); MUCUS, URINE SMALL (NEGATIVE); NITRITE, URINE AUTO NEGATIVE (NEGATIVE); PROTEIN, URINE AUTO 1+ mg/dL (NEGATIVE); RBC, URINE AUTO 72 /HPF (0-3); SPECIFIC GRAVITY URINE AUTO 1.016 (1.002-1.035); SQUAMOUS EPITHELIAL CELL UR AU 0 /HPF (0-6); UROBILINOGEN, URINE AUTO 0.2 mg/dL (0.0-2.0); WBC, URINE AUTO 3 /HPF (0-3)
[2023-06-14] MEDS ORDERED: METO50TA7 PO (04:17)
[2023-06-14 04:39] LABS: CALCIUM LEVEL 8.7 MG/DL (8.3-10.6); CREATININE FOR GFR 1.65 MG/DL (0.70-1.30); GLOMERULAR FILTRATION RATE 42.1 (>35); POTASSIUM SERUM 4.9 MMOL/L (3.5-5.1)
[2023-06-14 04:57] LABS: BASO % 0.2 % (0.0-1.0); EOS # 0.1 10^3/uL (0.0-0.5); LYMPH # 2.9 10^3/uL (1.5-5.0); LYMPH % 23.3 % (24.0-44.0); MONO % 12.4 % (2.0-8.0); NEUTROPHILS # 7.8 10^3/uL (1.5-8.5); NEUTROPHILS % 62.5 % (36.0-66.0)
[2023-06-14 05:08] LABS: MAGNESIUM LEVEL 2.4 MG/DL (1.8-2.4)
[2023-06-14] MEDS ORDERED: ISOVUE-370 76% 100ML VIAL As Ordered ONE (05:42)
[2023-06-14 05:46] LABS: MONO # 1.6 10^3/uL (0.0-0.8)
[2023-06-14 06:30] LABS: ATYPICAL LYMPH 3 % (0-5); BASOPHILS 3 % (0-1); EOSINOPHILS 3 % (0-3); LYMPHOCYTES 19 % (16-44); MONOCYTES 11 % (0-5); NEUTROPHILS 61 % (28-66)
[2023-06-14 06:31] LABS: ANISOCYTOSIS 1+; OVALOCYTES 1+; POIKILOCYTOSIS 1+
[2023-06-14] MEDS ORDERED: atenoloL 50 MG TAB PO ONE (06:35)
[2023-06-14 06:52] LABS: ALBUMIN 2.9 G/DL (3.2-5.2); BILIRUBIN,DIRECT 0.4 MG/DL (<0.4); BILIRUBIN,TOTAL 0.7 MG/DL (0.3-1.2); TOTAL PROTEIN 5.8 G/DL (5.7-8.2)
[2023-06-14 06:58] LABS: PLATELET ESTIMATE NORMAL (NORMAL)
[2023-06-14] MEDS ORDERED: TORS20TA2 PO (07:51)
[2023-06-14] MEDS ORDERED: METO100T5 PO (07:51)
[2023-06-14] MEDS ORDERED: HOME MED LIST COMPLETE! XX SCH (07:55)
[2023-06-14] MEDS ORDERED: ACETAMINOPHEN TAB 650MG DOSE (2X325MG) PO PRN (09:55)
[2023-06-14] MEDS ORDERED: MAALOX 30 ML SUSP *UDC PO PRN (09:55)
[2023-06-14] MEDS ORDERED: MOM 30ML SUSPENSION UDC PO PRN (09:55)
[2023-06-14] MEDS: MAGNESIUM OXIDE 400MG TAB (MAG-OX) PO SCH (16:16)
[2023-06-14] MEDS: POTASSIUM CHLORIDE 10MEQ SR TABLET PO SCH (16:16)
[2023-06-14] MEDS: dilTIAZem 120MG **CD** CAPSULE PO SCH (16:19)
[2023-06-14] MEDS: TORSEMIDE 20 MG TAB PO SCH (16:53)
[2023-06-14] MEDS: BRIMONIDINE 0.15% OPHTH SOLN 5 ML OD SCH (17:11)
[2023-06-14 21:17] VITALS: BP 121/86; TEMP 98.6; O2SAT 97
[2023-06-14] MEDS: APIXABAN 5 MG TAB (ELIQUIS) PO SCH (21:43)
[2023-06-14] MEDS: DORZOLAMIDE 2% OPHTH SOLN 10 ML BTL OU SCH (21:43)
[2023-06-14] MEDS: LATANOPROST 0.005% OPHTH SOLN 2.5 ML OU SCH (21:43)
[2023-06-14] MEDS ORDERED: RAMELTEON 8 MG TAB (ROZEREM) PO PRN ×2 (23:40→23:50)
[2023-06-15] VITALS: BP 116/62; TEMP 97.9; O2SAT 95
[2023-06-15 04:00] VITALS: BP 122/75; TEMP 97.2; O2SAT 95
[2023-06-15 05:05] LABS: HEMATOCRIT 38.4 % (42.0-52.0); MEAN CORPUSCULAR HEMOGLOBIN 29.3 pg (27.0-33.0); MEAN CORPUSCULAR HGB CONC 31.3 g/dl (32.0-36.5); MEAN CORPUSCULAR VOLUME 93.7 fl (80.0-96.0); PLATELET COUNT, AUTOMATED 247 10^3/uL (150-450); WHITE BLOOD COUNT 10.4 10^3/uL (4.0-10.0)
[2023-06-15 05:28] LABS: CALCIUM LEVEL 8.2 MG/DL (8.3-10.6); CREATININE FOR GFR 1.36 MG/DL (0.70-1.30); GLOMERULAR FILTRATION RATE 52.6 (>35); MAGNESIUM LEVEL 2.3 MG/DL (1.8-2.4); POTASSIUM SERUM 4.2 MMOL/L (3.5-5.1)
[2023-06-15 08:10] VITALS: BP 118/78; TEMP 97; O2SAT 96
[2023-06-15] MEDS: MAGNESIUM OXIDE 400MG TAB (MAG-OX) PO SCH (08:23)
[2023-06-15] MEDS: TORSEMIDE 20 MG TAB PO SCH (08:23)
[2023-06-15] MEDS: DORZOLAMIDE 2% OPHTH SOLN 10 ML BTL OU SCH ×2 (08:24→21:51)
[2023-06-15] MEDS: APIXABAN 5 MG TAB (ELIQUIS) PO SCH ×2 (08:24→21:50)
[2023-06-15] MEDS: POTASSIUM CHLORIDE 10MEQ SR TABLET PO SCH (08:24)
[2023-06-15] MEDS: dilTIAZem 120MG **CD** CAPSULE PO SCH (08:24)
[2023-06-15] MEDS: LATANOPROST 0.005% OPHTH SOLN 2.5 ML OU SCH (08:24)
[2023-06-15] MEDS: BRIMONIDINE 0.15% OPHTH SOLN 5 ML OD SCH (08:36)
[2023-06-15 12:31] VITALS: BP 100/65; TEMP 96.6; O2SAT 94
[2023-06-15 16:10] VITALS: BP 134/81; TEMP 97.7; O2SAT 95
[2023-06-15 19:52] VITALS: BP 113/71; TEMP 98.8; O2SAT 90
[2023-06-16] MEDS: RAMELTEON 8 MG TAB (ROZEREM) PO PRN ×2 (02:16→21:53)
[2023-06-16 05:05] VITALS: BP 119/78; TEMP 98.4; O2SAT 96
[2023-06-16 06:18] LABS: BASO % 0.3 % (0.0-1.0); EOS # 0.4 10^3/uL (0.0-0.5); EOS % 4.1 % (0.0-3.0); HEMATOCRIT 37.9 % (42.0-52.0); HEMOGLOBIN 11.9 g/dl (13.5-17.5); MEAN CORPUSCULAR HEMOGLOBIN 29.5 pg (27.0-33.0); MEAN CORPUSCULAR HGB CONC 31.4 g/dl (32.0-36.5); MONO # 0.9 10^3/uL (0.0-0.8); MONO % 10.1 % (2.0-8.0); NEUTROPHILS # 5.5 10^3/uL (1.5-8.5); NEUTROPHILS % 61.8 % (36.0-66.0); PLATELET COUNT, AUTOMATED 235 10^3/uL (150-450); RED BLOOD COUNT 4.03 10^6/uL (4.30-6.10); WHITE BLOOD COUNT 8.9 10^3/uL (4.0-10.0)
[2023-06-16 06:37] LABS: CREATININE FOR GFR 1.3 MG/DL (0.70-1.30); GLOMERULAR FILTRATION RATE 55.5 (>35)
[2023-06-16] MEDS: TORSEMIDE 20 MG TAB PO SCH (09:00)
[2023-06-16] MEDS: BRIMONIDINE 0.15% OPHTH SOLN 5 ML OD SCH (09:00)
[2023-06-16] MEDS: POTASSIUM CHLORIDE 10MEQ SR TABLET PO SCH (09:14)
[2023-06-16] MEDS: APIXABAN 5 MG TAB (ELIQUIS) PO SCH ×2 (09:14→21:53)
[2023-06-16] MEDS: DORZOLAMIDE 2% OPHTH SOLN 10 ML BTL OU SCH ×2 (09:15→21:54)
[2023-06-16] MEDS: MAGNESIUM OXIDE 400MG TAB (MAG-OX) PO SCH (09:15)
[2023-06-16] MEDS: LATANOPROST 0.005% OPHTH SOLN 2.5 ML OU SCH (09:15)
[2023-06-16] MEDS: dilTIAZem 120MG **CD** CAPSULE PO SCH (09:17)
[2023-06-16] MEDS ORDERED: NS 500 ML IV ONE (09:40)
[2023-06-16 11:24] VITALS: BP 113/82
[2023-06-16 14:00] VITALS: BP 118/81; TEMP 98.2; O2SAT 94
[2023-06-16] MEDS ORDERED: dilTIAZem 120MG **CD** CAPSULE PO STA (19:10)
[2023-06-16 20:33] VITALS: BP 140/92; TEMP 98.1; O2SAT 94
[2023-06-16 21:55] VITALS: BP 132/91
[2023-06-16 23:37] VITALS: BP 131/91
[2023-06-17 04:34] VITALS: BP 131/91
[2023-06-17 05:16] VITALS: BP 119/80; TEMP 97.8; O2SAT 97
[2023-06-17] MEDS: dilTIAZem 120MG **CD** CAPSULE PO SCH (09:00)
[2023-06-17] MEDS: BRIMONIDINE 0.15% OPHTH SOLN 5 ML OD SCH (09:00)
[2023-06-17] MEDS: APIXABAN 5 MG TAB (ELIQUIS) PO SCH ×2 (09:45→21:58)
[2023-06-17] MEDS: POTASSIUM CHLORIDE 10MEQ SR TABLET PO SCH (09:45)
[2023-06-17] MEDS: MAGNESIUM OXIDE 400MG TAB (MAG-OX) PO SCH (09:45)
[2023-06-17] MEDS: DORZOLAMIDE 2% OPHTH SOLN 10 ML BTL OU SCH ×2 (09:51→21:58)
[2023-06-17 13:58] VITALS: BP 134/81; TEMP 98.1; O2SAT 97
[2023-06-17] MEDS: dilTIAZem 30 MG TAB PO SCH ×2 (14:17→21:55)
[2023-06-17] MEDS ORDERED: RAMELTEON 8 MG TAB (ROZEREM) PO PRN (18:00)
[2023-06-17 19:41] VITALS: BP 107/66; TEMP 98.1; O2SAT 95
[2023-06-17] MEDS: LATANOPROST 0.005% OPHTH SOLN 2.5 ML OU SCH (21:58)
[2023-06-18] MEDS: CEPACOL LOZENGE PO PRN ×2 (01:45→09:05)
[2023-06-18 05:19] VITALS: BP 112/72; TEMP 98.2; O2SAT 96
[2023-06-18] MEDS ORDERED: dilTIAZem 120MG **CD** CAPSULE PO SCH (06:00)
[2023-06-18 06:05] VITALS: BP 122/72
[2023-06-18] MEDS: APIXABAN 5 MG TAB (ELIQUIS) PO SCH (09:06)
[2023-06-18] MEDS: DORZOLAMIDE 2% OPHTH SOLN 10 ML BTL OU SCH (09:06)
[2023-06-18] MEDS: POTASSIUM CHLORIDE 10MEQ SR TABLET PO SCH (09:06)
[2023-06-18] MEDS: MAGNESIUM OXIDE 400MG TAB (MAG-OX) PO SCH (09:06)
[2023-06-18] MEDS ORDERED: LASI20TA3 PO (09:07)
[2023-06-18] MEDS ORDERED: CARD120C3 PO (09:07)
[2023-06-18] MEDS: BRIMONIDINE 0.15% OPHTH SOLN 5 ML OD SCH (09:08)
== END 2023-06-18 12:19 | disposition home or self-care (01) | DRG 309 ==
LOC: M ED 03:25 → M ED INP 09:51 → ENRESERV 20:06 → M PCU 21:12 → M MSPAV 06-15 16:06
PROVIDERS: ADMIT Student in an Organized Health Care Education/Training Program; ATTEND Student in an Organized Health Care Education/Training Program
DX: I48.20 Chronic atrial fibrillation, unspecified (principal); N17.9 Acute kidney failure, unspecified; C91.10 Chronic lymphocytic leukemia of B-cell type not having achieved remission; R00.0 Tachycardia, unspecified; I27.20 Pulmonary hypertension, unspecified; I10 Essential (primary) hypertension; Z79.01 Long term (current) use of anticoagulants; Z88.8 Allergy status to other drugs, medicaments and biological substances; Z79.899 Other long term (current) drug therapy; Z85.828 Personal history of other malignant neoplasm of skin; Z85.820 Personal history of malignant melanoma of skin; Z87.891 Personal history of nicotine dependence

== ENCOUNTER → 2024-04-08 | Outpatient (REF) | payer MEDICARE ==
[~2024-04-08] MED LIST changes: +IRBE150T27 PO; -IRBE150T7 PO; +LASI20TA3 PO; +METO50TA7 PO; -POTA10CA60 PO; +POTA10CA70 PO
== END ==
LOC: M SFHCDERM 07:44
PROVIDERS: ATTEND Physician Assistant
DX: D04.5 Carcinoma in situ of skin of trunk (principal); C44.519 Basal cell carcinoma of skin of other part of trunk

== ENCOUNTER → 2024-05-01 | Outpatient (REF) | payer MEDICARE | LOC: M SFHCDERM 17:21 | PROVIDERS: ATTEND Physician Assistant | DX: C44.619 Basal cell carcinoma of skin of left upper limb, including shoulder (principal); C44.629 Squamous cell carcinoma of skin of left upper limb, including shoulder ==